=== PATIENT | female | born 1980 | race Caucasian/White ===

== ENCOUNTER → 2018-01-13 11:19 | Outpatient (CLI) | payer OTHER, MEDICAID, SELFPAY ==
[2018-01-13 12:16] LABS: Add Manual Diff / Slide Review NO; Basophils Percent Auto 0.4 % (0-2); Eosinophils Percent Auto 0.6 % (2-4); Hematocrit 39.8 % (36-46); Hemoglobin 13.1 g/dL (12.0-16.0); Lymphocytes Percent Auto 23.2 % (25-40); Mean Corpuscular HGB Conc 32.9 % (30-36); Mean Corpuscular Hemoglobin 24.6 PG (26-34); Mean Corpuscular Volume 74.9 fL (80-100); Monocytes Percent Auto 4.4 % (3-14); Neutrophils Absolute Auto 4800 /uL (3000-5900); Neutrophils Percent Auto 71.4 % (50-75); Platelet Count 259 X10^3/uL (150-400); Red Blood Cell Count 5.32 X10^6/uL (4.0-5.2); Red Cell Distribution Width 15.2 % (11.6-14.8); White Blood Cell Count 6.7 X10^3/uL (4.5-11.0)
[2018-01-13 13:49] LABS: HEMOLYSIS < 15 (0-50); Iron 48 ug/dL (37-170)
[2018-01-13 14:00] LABS: Percent Iron Saturation 12 % (15-50); Total Iron Binding Capacity 415 ug/mL (265-497); Transferrin 343 mg/dL (206-381)
[2018-01-13 14:05] LABS: Free T4, Direct Thyroxine 1.16 ng/dL (0.78-2.19)
[2018-01-13 14:15] LABS: Ferritin 14.5 ng/mL (6.27-137)
[2018-01-13 14:18] LABS: Thyroid Stimulating Hormone 2.59 uIU/mL (0.47-4.68)
== END ==
PROVIDERS: PCP Family Medicine; Visit Provider Family Medicine
DX: D50.9 Iron deficiency anemia, unspecified (principal); E03.9 Hypothyroidism, unspecified
CPT/HCPCS: 36415; 82728; 83540; 83550; 84439; 84443; 84481; 85025

== ENCOUNTER → 2018-08-13 14:43 | Outpatient (CLI) | payer OTHER, MEDICAID, SELFPAY ==
[2018-08-13 15:19] LABS: Add Manual Diff / Slide Review NO; Basophils Percent Auto 0.4 % (0-2); Eosinophils Percent Auto 0.7 % (2-4); Hematocrit 40.6 % (36-46); Lymphocytes Percent Auto 26.3 % (25-40); Mean Corpuscular HGB Conc 31.9 % (30-36); Mean Corpuscular Hemoglobin 23.7 PG (26-34); Mean Corpuscular Volume 74.2 fL (80-100); Monocytes Percent Auto 4.7 % (3-14); Neutrophils Absolute Auto 5700 /uL (1500-7000); Neutrophils Percent Auto 67.9 % (50-75); Platelet Count 318 X10^3/uL (150-400); Red Blood Cell Count 5.48 X10^6/uL (4.0-5.2); White Blood Cell Count 8.3 X10^3/uL (4.5-11.0)
== END ==
PROVIDERS: PCP Family Medicine; Visit Provider Family Medicine
DX: D50.9 Iron deficiency anemia, unspecified (principal)
CPT/HCPCS: 36415; 85025

== ENCOUNTER → 2018-11-03 16:07 | Outpatient (CLI) | payer OTHER, MEDICAID, SELFPAY ==
[2018-11-03 18:10] LABS: HIV 1 and 2 Antibody NEGATIVE (NEGATIVE)
[2018-11-06 09:12] LABS: Hepatitis A Antibody IgM NONREACTIVE (NONREACTIVE); Hepatitis Acute Panel Interp 0.03; Hepatitis B Core Antibody IgM NONREACTIVE (NONREACTIVE); Hepatitis B Surface Antigen NONREACTIVE (NONREACTIVE); Hepatitis C Antibody NONREACTIVE
== END ==
PROVIDERS: PCP Family Medicine; Visit Provider Family Medicine
DX: T74.21XA Adult sexual abuse, confirmed, initial encounter (principal)
CPT/HCPCS: 36415; 80074; 86703

== ENCOUNTER → 2019-02-05 14:55 | Outpatient (CLI) | payer OTHER, MEDICAID, SELFPAY ==
[2019-02-05 15:22] LABS: Add Manual Diff / Slide Review NO; Basophils Absolute Auto 100 /uL (0-100); Eosinophils Absolute Auto 100 /uL (0-450); Eosinophils Percent Auto 1.1 % (2-4); Hematocrit 40.3 % (36-46); Hemoglobin 13.2 g/dL (12.0-16.0); Lymphocytes Absolute Auto 1800 /uL (1100-4500); Lymphocytes Percent Auto 23.5 % (25-40); Mean Corpuscular HGB Conc 32.8 % (30-36); Mean Corpuscular Hemoglobin 24.1 PG (26-34); Mean Corpuscular Volume 73.3 fL (80-100); Monocytes Absolute Auto 400 /uL (0-900); Monocytes Percent Auto 5.1 % (3-14); Neutrophils Absolute Auto 5300 /uL (1500-7000); Neutrophils Percent Auto 69.3 % (50-75); Platelet Count 295 X10^3/uL (150-400); Red Cell Distribution Width 15.2 % (11.6-14.8); White Blood Cell Count 7.7 X10^3/uL (4.5-11.0)
[2019-02-05 15:35] LABS: Hemoglobin A1C% w Est Avg Glu 5.1 % (4.0-6.0)
[2019-02-05 15:50] LABS: Blood Urea Nitrogen 12 mg/dL (7-17); Calcium 9.6 mg/dL (8.4-10.2); Carbon Dioxide 26 mmol/L (22-32); Chloride 101 mmol/L (98-107); Estimated Glomerular Filt Rate > 60.0 mL/min (>60); Glucose 129 mg/dL (70-100); HEMOLYSIS < 15 (0-50); Potassium 4.2 mmol/L (3.4-5.1); Sodium 138 mmol/L (137-145)
[2019-02-05 15:56] LABS: HEMOLYSIS 33 (0-50); Iron 52 ug/dL (37-170)
[2019-02-05 16:06] LABS: Percent Iron Saturation 12 % (15-50); Total Iron Binding Capacity 420 ug/dL (265-497); Transferrin 332 mg/dL (206-381)
[2019-02-05 16:25] LABS: Ferritin 73.9 ng/mL (6.27-137)
[2019-02-09 16:49] LABS: Hematocrit 42.1 % (35.0-45.0); Hemoglobin 13.3 g/dL (11.7-15.5); MCH 24.3 pg (27.0-33.0); MCV 76.8 fL (80.0-100.0); RBC Total Count 5.48 Million/uL (3.80-5.10); RDW 15.3 % (11.0-15.0)
== END ==
PROVIDERS: PCP Family Medicine; Visit Provider Family Medicine
DX: E16.2 Hypoglycemia, unspecified (principal); D50.9 Iron deficiency anemia, unspecified
CPT/HCPCS: 36415; 80048; 82728; 83021; 83036; 83540; 83550; 85014; 85018; 85025; 85041

== ENCOUNTER → 2019-04-16 15:51 | Outpatient (CLI) | payer OTHER, MEDICAID, SELFPAY ==
[2019-04-16 17:26] LABS: BUN Creatinine Ratio 18.3 (6-22); Blood Urea Nitrogen 11 mg/dL (7-17); Calcium 9.3 mg/dL (8.4-10.2); Carbon Dioxide 29 mmol/L (22-32); Chloride 104 mmol/L (98-107); Estimated Glomerular Filt Rate > 60.0 mL/min (>60); Glucose 90 mg/dL (70-100); HEMOLYSIS < 15 (0-50); Sodium 140 mmol/L (137-145)
[2019-04-16 18:18] LABS: HIV 1 and 2 Antibody NEGATIVE (NEGATIVE)
[2019-05-08 13:07] LABS: Hepatitis A Antibody IgM NONREACTIVE; Hepatitis B Core Antibody IgM NONREACTIVE; Hepatitis B Surface Antigen NONREACTIVE; Hepatitis C Antibody NONREACTIVE
== END ==
PROVIDERS: PCP Family Medicine; Visit Provider Family Medicine
DX: T74.21XA Adult sexual abuse, confirmed, initial encounter (principal); I10 Essential (primary) hypertension
CPT/HCPCS: 36415; 80048; 80074; 86703

== ENCOUNTER → 2019-05-22 13:14 | Outpatient (CLI) | payer OTHER, MEDICAID, SELFPAY ==
[2019-05-22 14:29] LABS: BUN Creatinine Ratio 16.7 (6-22); Blood Urea Nitrogen 10 mg/dL (7-17); Calcium 9.2 mg/dL (8.4-10.2); Carbon Dioxide 31 mmol/L (22-32); Chloride 103 mmol/L (98-107); Estimated Glomerular Filt Rate > 60.0 mL/min (>60); Glucose 89 mg/dL (70-100); HEMOLYSIS < 15 (0-50); Potassium 3.9 mmol/L (3.4-5.1); Sodium 139 mmol/L (137-145)
== END ==
PROVIDERS: PCP Family Medicine; Visit Provider Family Medicine
DX: I10 Essential (primary) hypertension (principal)
CPT/HCPCS: 36415; 80048

== ENCOUNTER → 2020-07-09 15:15 | Outpatient (CLI) | payer OTHER, MEDICAID, SELFPAY ==
--- NOTE | 2020-07-09 15:16 | DI.MG.S_ITS ---
BILATERAL DIGITAL SCREENING MAMMOGRAM 3D/2D WITH CAD: 07/09/2020 CLINICAL: Routine screening. Comparison is made to exam dated: 01/14/2014 mammogram - outside location. The tissue of both breasts is heterogeneously dense. This may lower the sensitivity of mammography. Current study was also evaluated with a Computer Aided Detection (CAD) system. There is a stable benign global asymmetry in the left breast. No significant masses, calcifications, or other findings are seen in either breast. There has been no significant interval change. IMPRESSION: BENIGN There is no mammographic evidence of malignancy. A 1 year screening mammogram is recommended. This exam was interpreted at Station ID: [id number]. NOTE: For mammograms, a report in lay terms will be sent to the patient. Approximately 15% of breast malignancies will not be visualized mammographically. In the management of a palpable breast mass, a negative mammogram must not discourage biopsy of a clinically suspicious lesion. Electronically Signed By: Zander Clark acr/hakan:07/10/2020 18:08:58 letter sent: Normal Exam ACR BI-RADS Category 2: Benign Finding(s) 3342F
== END ==
PROVIDERS: PCP Family Medicine; Referring Provider Family Medicine; Visit Provider Family Medicine
DX: Z12.31 Encounter for screening mammogram for malignant neoplasm of breast (principal)
CPT/HCPCS: 77063; 77067

== ENCOUNTER → 2021-02-17 10:04 | Outpatient (CLI) | payer OTHER, MEDICAID, SELFPAY ==
[2021-02-17 10:40] LABS: Add Manual Diff / Slide Review NO; Basophils Absolute Auto 0 /uL (0-100); Basophils Percent Auto 0.5 % (0-2); Eosinophils Absolute Auto 100 /uL (0-450); Eosinophils Percent Auto 0.7 % (2-4); Hematocrit 37.6 % (36-46); Hemoglobin 12.4 g/dL (12.0-16.0); Lymphocytes Absolute Auto 2000 /uL (1100-4500); Mean Corpuscular HGB Conc 32.9 % (30-36); Mean Corpuscular Hemoglobin 24.6 PG (26-34); Mean Corpuscular Volume 74.7 fL (80-100); Monocytes Absolute Auto 500 /uL (0-900); Neutrophils Absolute Auto 5000 /uL (1500-7000); Neutrophils Percent Auto 65.8 % (50-75); Platelet Count 252 X10^3/uL (150-400); Red Blood Cell Count 5.03 X10^6/uL (4.0-5.2); Red Cell Distribution Width 15.4 % (11.6-14.8); White Blood Cell Count 7.7 X10^3/uL (4.5-11.0)
[2021-02-17 10:55] LABS: BUN Creatinine Ratio 16.1 (6-22); Blood Urea Nitrogen 10 mg/dL (7-17); Calcium 9.4 mg/dL (8.4-10.2); Carbon Dioxide 28 mmol/L (22-32); Chloride 103 mmol/L (98-107); Estimated Glomerular Filt Rate > 60.0 mL/min (>60); Glucose 107 mg/dL (70-100); HEMOLYSIS < 15 (0-50); Potassium 3.6 mmol/L (3.4-5.1); Sodium 139 mmol/L (137-145)
[2021-02-17 11:24] LABS: TSH w/ Reflex to FT4 4.53 uIU/mL (0.47-4.68)
[2021-02-20 10:23] LABS: HEMOLYSIS < 15 (0-50); Iron 41 ug/dL (37-170)
[2021-02-20 10:34] LABS: Percent Iron Saturation 11 % (15-50); Total Iron Binding Capacity 370 ug/dL (265-497); Transferrin 312 mg/dL (206-381)
[2021-02-20 10:43] LABS: Ferritin 34 ng/mL (6-137)
== END ==
PROVIDERS: PCP Family Medicine; Referring Provider Family Medicine; Visit Provider Family Medicine
DX: E03.9 Hypothyroidism, unspecified (principal); I10 Essential (primary) hypertension; D50.8 Other iron deficiency anemias
CPT/HCPCS: 36415; 80048; 82728; 83540; 83550; 84443; 85025

== ENCOUNTER → 2021-03-31 12:54 | Outpatient (CLI) | payer OTHER, MEDICAID, SELFPAY ==
[2021-03-31 13:47] LABS: COVID19 -Nasal RAPID Negative (Negative)
== END ==
PROVIDERS: PCP Family Medicine; Referring Provider Internal Medicine; Visit Provider Internal Medicine
DX: Z20.822 Contact with and (suspected) exposure to COVID-19 (principal)
CPT/HCPCS: 87635; C9803

== ENCOUNTER → 2021-03-31 12:56 | Outpatient (CLI) | payer OTHER, MEDICAID, SELFPAY ==
--- NOTE | 2021-04-12 09:28 | PM.PFT.1 ---
Pulmonary Function Test Referral & Results Date Patient Seen: 03/31/21 Requesting provider: Shyla Perez Results: The spirometry demonstrates an FVC of 3.33 L which is 91% of predicted. The FEV1 was measured at 2.74 L which is 92% of predicted. The FEV1/FVC ratio was 82 which is 100% of predicted. Following the administration of bronchodilator there was no appreciable change to above normal numbers. Lung volumes show an SVC of 3.34 L which is 98% of predicted. The diffusing capacity was measured at 22.50 which is 92% of predicted. The maximum voluntary ventilation was normal Interpretation: This study demonstrates normal pulmonary function
== END ==
PROVIDERS: PCP Family Medicine; Referring Provider Family Medicine; Visit Provider Family Medicine
DX: R06.02 Shortness of breath (principal); Z20.822 Contact with and (suspected) exposure to COVID-19
CPT/HCPCS: 87635; 94060; 94726; 94729; C9803

== ENCOUNTER → 2021-04-28 10:48 | Outpatient (CLI) | payer OTHER, MEDICAID, SELFPAY ==
[2021-04-28 12:23] LABS: TSH w/ Reflex to FT4 1.21 uIU/mL (0.47-4.68)
== END ==
PROVIDERS: PCP Family Medicine; Referring Provider Family Medicine; Visit Provider Family Medicine
DX: E03.9 Hypothyroidism, unspecified (principal)
CPT/HCPCS: 36415; 84443

== ENCOUNTER 2021-05-17 11:54 | Emergency (ER) | payer OTHER, MEDICAID, SELFPAY ==
[2021-05-17] VITALS (9 sets, daily range): BP systolic 134–153; BP diastolic 65–89; PULSE 53–98; RESP 4–30; TEMP 36.3; O2SAT 97–100; BMI 41.1
--- NOTE | 2021-05-17 12:08 | DI.RAD.S_ITS ---
PROCEDURE: XR CHEST 1V INDICATIONS: chest pain TECHNIQUE: One view of the chest was acquired. COMPARISON: None. FINDINGS: Surgical changes and devices: None. Lungs and pleura: Lungs are clear. No pleural effusions or pneumothorax. Mediastinum: Mediastinal contours appear normal. Heart size is normal. Bones and chest wall: No suspicious bony lesions. Overlying soft tissues appear unremarkable. IMPRESSION: No acute pulmonary process. Dictated by: Staci Ventura M.D. on 05/17/2021 at 12:29 Approved by: Staci Ventura M.D. on 05/17/2021 at 12:29
[2021-05-17 12:20] LABS: Add Manual Diff / Slide Review NO; Basophils Absolute Auto 0 /uL (0-100); Basophils Percent Auto 0.5 % (0-2); Eosinophils Absolute Auto 100 /uL (0-450); Hematocrit 36.6 % (36-46); Hemoglobin 11.6 g/dL (12.0-16.0); Lymphocytes Absolute Auto 1300 /uL (1100-4500); Lymphocytes Percent Auto 17.6 % (25-40); Mean Corpuscular HGB Conc 31.7 % (30-36); Mean Corpuscular Hemoglobin 24.3 PG (26-34); Mean Corpuscular Volume 76.4 fL (80-100); Monocytes Absolute Auto 300 /uL (0-900); Monocytes Percent Auto 3.9 % (3-14); Neutrophils Absolute Auto 5900 /uL (1500-7000); Platelet Count 277 X10^3/uL (150-400); Red Cell Distribution Width 15.3 % (11.6-14.8); White Blood Cell Count 7.7 X10^3/uL (4.5-11.0)
[2021-05-17 12:37] LABS: Alanine Aminotransferase 21 IU/L (<35); Albumin 4.3 g/dL (3.5-5.0); Albumin Globulin Ratio 1.2 (1.0-2.8); Alkaline Phosphatase 97 U/L (38-126); Aspartate Aminotransferase 26 IU/L (14-36); BUN Creatinine Ratio 14.1 (6-22); Bilirubin Total 0.3 mg/dL (0.2-1.3); Blood Urea Nitrogen 9 mg/dL (7-17); Calcium 9.4 mg/dL (8.4-10.2); Carbon Dioxide 31 mmol/L (22-32); Chloride 105 mmol/L (98-107); Creatine Kinase 97 U/L (30-135); Estimated Glomerular Filt Rate > 60.0 mL/min (>60); Globulin 3.5 g/dL (1.7-4.1); Glucose 112 mg/dL (70-100); HEMOLYSIS < 15 (0-50); Lipase 64 U/L (23-300); Potassium 4.2 mmol/L (3.4-5.1); Sodium 140 mmol/L (137-145); Total Protein 7.8 g/dL (6.3-8.2)
[2021-05-17] MEDS: ONDANSETRON 4 MG ODT SL (12:38)
[2021-05-17 12:49] LABS: NT-proBNP (BNP-Adult 18+) 78 pg/mL (<125); Troponin I < 0.012 ng/mL (0.01-0.034)
[2021-05-17 12:54] LABS: COVID19 -Nasal RAPID Negative (Negative)
--- NOTE | 2021-05-17 13:06 | ED.CHESTPAIN ---
HPI - Chest Pain General Chief Complaint: Chest Pain Stated Complaint: Abd Pain, chest pressure from [facility] Time Seen by Provider: 05/17/21 12:53 Source: patient Mode of arrival: Wheelchair History of Present Illness HPI narrative: Patient is a 41-year-old female. Was sent to the emergency department from the walk-in clinic for was initially described as chest pressure and abdominal discomfort. Upon my evaluation the patient states she is having upper back pain that is radiating around to the front and also tore upper abdomen. It started earlier today. She informed nursing staff that she has had similar symptoms in the past that have resolved with having a bowel movement but when I asked her about prior symptoms like this she stated that she has never had symptoms before. Her back discomfort does not get worse with palpation or movement. No rashes over the area. No problems with breathing. She states that the symptoms are there consistently but then seemed to get worse. She describes it as a ?cramping sensation. She states this causes her to have nausea and vomiting. No urinary symptoms. No change in bowel habits. No fevers. Related Data Home Medications Medication Instructions Recorded Confirmed Resmed Airsense 10 CPAP #1 ea 02/03/19 04/28/21 buspirone 10 mg tablet 10 mg PO BID 06/03/19 04/28/21 Previous Rx's Medication Instructions Recorded sertraline 100 mg tablet 200 mg PO DAILY #60 tab 01/13/18 Test Strips - Freestyle #100 each 05/09/20 ferrous sulfate 325 mg (65 mg 325 mg PO QDAY #90 tab 05/09/20 iron) tablet (Iron (ferrous sulfate)) levothyroxine 88 mcg tablet 88 mcg PO DAILY #30 tab 02/20/21 hydrochlorothiazide 25 mg tablet 25 mg PO DAILY #30 tab 04/13/21 lancets 33 gauge (BD Ultra Fine #250 ea 04/13/21 Lancets) cyclobenzaprine 10 mg tablet 10 mg PO TID PRN #14 tab 05/17/21 ondansetron 4 mg disintegrating 4 mg PO Q6H PRN #14 tab 05/17/21 tablet Allergies Allergy/AdvReac Type Severity Reaction Status Date / Time No Known Allergies Allergy Uncoded 05/17/21 12:15 Review of Systems Constitutional Constitutional: Reports system reviewed and no additional complaints, except as documented and Denies fever(s) Cardiovascular Cardiovascular: Reports as per HPI and Reports system reviewed and no additional complaints, except as documented Respiratory Respiratory: Reports as per HPI and Reports system reviewed and no additional complaints, except as documented Gastrointestinal Gastrointestinal: Reports as per HPI and Reports system reviewed and no additional complaints, except as documented Genitourinary Genitourinary: Reports system reviewed and no additional complaints, except as documented Musculoskeletal Musculoskeletal: Reports back pain Integumentary/Breasts Skin/Breast: Reports system reviewed and no additional complaints, except as documented and Reports as per HPI Neurologic Neurologic: Reports system reviewed and no additional complaints, except as documented Hematologic/Lymphatic On Anticoagulants: No Patient History Medical History Abnormal Pap smear of cervix (~2013) Anemia Ankle pain (~2016) Anxiety Burton's palsy Chickenpox Chronic back pain Depression Dyslexia Essential hypertension Fracture (~2016) 3 Hearing deficit History of frequent headaches HSV (herpes simplex virus) infection (~1989) Hyperlipidemia Hypothyroidism (~2013) IBS (irritable bowel syndrome) (~2012) Pre-diabetes PTSD (post-traumatic stress disorder) Sleep apnea (~2015) Ulnar neuropathy Surgical History Anesthesia History of ankle surgery (~2016) History of third molar tooth extraction (~2000) Status post tubal ligation (~2003) Family History Grandfather Cancer Grandmother Heart disease High cholesterol Stroke Mother Age: 68 Atrial fibrillation Hypertension Obesity Diabetes mellitus Brother No problems noted. Father No problems noted. Social History Smoking Status: Never smoker Smoking Status: Never smoker Substance Use Type: does not use Exam Initial Vital Signs Initial Vital Signs: Vital Signs Pulse Rate 73 05/17/21 12:00 Pulse Oximetry 97 05/17/21 12:00 HENMT Head: normal to inspection and normocephalic Chest Chest: No crepitus and No tenderness Resp Effort & Inspection: normal respiratory effort Auscultation: clear to auscultation bilaterally Cardio Rate: regular rate Rhythm: regular rhythm GI Palpation: soft, No firm and No tender Back/Spine/Pelvis Cervical Spine: No cervical spinal tenderness Thoracic/Lumbar Spine: No paraspinal tenderness, No thoraco-lumbar spasm and No thoracic spinal tenderness Skin General: no rashes or lesions noted Neuro General: patient alert, patient awake and moves all extremities Extrem General: normal to inspection and capillary refill normal Psych Appearance: grossly normal and well kempt Course Orders Ordered: ED Orders 05/17/21 12:08 XR chest 1V Stat EKG-12 Lead Stat 05/17/21 12:12 Complete Blood Count AUTO DIFF Stat Comprehensive Metabolic Panel Stat Lipase Stat NT-proBNP (BNP-Adult 18+) Stat Troponin & CK Cardiac Panel Stat 05/17/21 12:19 COVID19 -Nasal swab/Pre-Proc Stat Discontinued Medications Ondansetron HCl (Ondansetron 4 Mg Odt) 4 mg SL NOW ONE Stop: 05/17/21 12:34 Last Admin: 05/17/21 12:38 Dose: 4 mg Documented by: SATURNINO Vital Signs Vital signs: Vital Signs - 8 hr 05/17/21 12:00 05/17/21 12:03 05/17/21 12:15 Temperature 97.3 F L Pulse Rate 73 61 62 Respiratory Rate 4 L 22 Blood Pressure 141/65 H 141/65 H Pulse Oximetry 97 99 99 05/17/21 12:30 05/17/21 12:32 05/17/21 12:49 Temperature Pulse Rate 57 L 98 H 61 Respiratory Rate 19 30 H 21 Blood Pressure 134/66 146/87 H Pulse Oximetry 100 99 99 05/17/21 13:00 05/17/21 13:30 05/17/21 13:31 Temperature Pulse Rate 53 L 58 L 55 L Respiratory Rate 22 12 14 Blood Pressure 148/85 H 153/89 H Pulse Oximetry 99 100 99 MDM - Chest Pain Lab Data Attestation: I reviewed the patient's lab results. Result diagrams: 05/17/21 12:12 05/17/21 12:12 Labs: Lab Results 05/17/21 05/17/21 05/17/21 Range/Units 12:12 12:12 12:19 WBC 7.7 (4.5-11.0) X10^3/uL RBC 4.80 (4.0-5.2) X10^6/uL Hgb 11.6 L (12.0-16.0) g/dL Hct 36.6 (36-46) % MCV 76.4 L (80-100) fL MCH 24.3 L (26-34) PG MCHC 31.7 (30-36) % RDW 15.3 H (11.6-14.8) % Plt Count 277 (150-400) X10^3/uL Neut % (Auto) 77.0 H (50-75) % Lymph % (Auto) 17.6 L (25-40) % Prentiss % (Auto) 3.9 (3-14) % Eos % (Auto) 1.0 L (2-4) % Baso % (Auto) 0.5 (0-2) % Neut # (Auto) 5900 (7811-9038) /uL Lymph # (Auto) 1300 (6412-7386) /uL Prentiss # (Auto) 300 (0-900) /uL Eos # (Auto) 100 (0-450) /uL Baso # (Auto) 0 (0-100) /uL Sodium 140 (137-145) mmol/L Potassium 4.2 (3.4-5.1) mmol/L Chloride 105 (98-107) mmol/L Carbon Dioxide 31 (22-32) mmol/L BUN 9 (7-17) mg/dL Creatinine 0.64 (0.52-1.04) mg/dL Estimated GFR > 60.0 (>60) mL/min BUN/Creatinine Ratio 14.1 (6-22) Glucose 112 H (70-100) mg/dL Calcium 9.4 (8.4-10.2) mg/dL Total Bilirubin 0.3 (0.2-1.3) mg/dL AST 26 (14-36) IU/L ALT 21 (<35) IU/L Alkaline Phosphatase 97 (38-126) U/L Total Creatine Kinase 97 (30-135) U/L CK-MB (CK-2) TNP CK-MB (CK-2) Rel Index TNP Troponin I < 0.012 (0.01-0.034) ng/mL NT-Pro-B Natriuret Pep 78 (<125) pg/mL Total Protein 7.8 (6.3-8.2) g/dL Albumin 4.3 (3.5-5.0) g/dL Globulin 3.5 (1.7-4.1) g/dL Albumin/Globulin Ratio 1.2 (1.0-2.8) Lipase 64 (23-300) U/L SARS-CoV-2 (PCR) Negative (Negative) Point of Care Testing Test Results Negative Urine Dip Bedside Urine Glucose Negative Bedside Urine Bilirubin - Negative Bedside Urine Ketone - Negative Urine Specific [place] 1.015 Bedside Urine Occult Blood - Negative Bedside Urine pH 8.0 Bedside Urine Protein - Negative Bedside Urine Urobilinogen - Negative Bedside Urine Nitrite - Negative Bedside Urine Leukocytes - Negative Esterase Imaging Data Chest x-ray: Radiologist's Impression: [address] [id number] ReportSigned Patient: Juan Antonio Ogden MMR#: [id number]: 1980Acct:[id number]/Sex: 41 / FDate of Service: 05/17/21Loc: EDAccession Number: [id number] Procedure: XR chest 1V Ordering Provider: Sandoval Gonzalez D.O. PROCEDURE: XR CHEST 1V INDICATIONS: chest pain TECHNIQUE: One view of the chest was acquired. COMPARISON: None. FINDINGS: Surgical changes and devices: None. Lungs and pleura: Lungs are clear. No pleural effusions or pneumothorax. Mediastinum: Mediastinal contours appear normal. Heart size is normal. Bones and chest wall: No suspicious bony lesions. Overlying soft tissues appear unremarkable. IMPRESSION: No acute pulmonary process. Dictated by: Staci Ventura M.D. on 05/17/2021 at 12:29 Approved by: Staci Ventura M.D. on 05/17/2021 at 12:29 ECG Data Attestation: I personally reviewed and interpreted this ECG as follows: Interpretation: Sinus rhythm Ventricular rate is 61 Normal axis Normal QRS Normal QTC No ST T wave changes MDM Narrative Medical decision making narrative: Somewhat difficult to obtain exactly why the patient is here. We have had different stories to include chest discomfort and abdominal discomfort but when I talk with the patient it seems that she is having back discomfort. She describes it as a cramping sensation that she states radiates around to the front. She states that is on the right side. Also causing her to have some discussed comfort in her abdomen which causes her to vomit. Her workup here in the emergency department is unremarkable. I have low suspicion for pneumonia. Low suspicion for ACS. Low suspicion for dissection based on her presentation. No further workup needed the emergency department. I have low suspicion for emergent condition. She was given return precautions and follow-up instructions. She expressed understanding and agreement. Discharge Plan Departure Patient Disposition: Home Clinical Impression: Acute upper back pain, Atypical chest pain Instructions: Thoracic Back Pain Activity Restrictions/Additional Instructions: I do recommend that you continue to take all the medications as directed. Start taking the new medications as directed and as needed as well. Contact your primary doctor for follow-up. Return to the emergency department for any new or worsening symptoms. Prescriptions: New cyclobenzaprine 10 mg tablet 10 mg PO TID PRN (Reason: muscle spasm) Qty: 14 RF: 0 ondansetron 4 mg tablet,disintegrating 4 mg PO Q6H PRN (Reason: nausea and vomiting) Qty: 14 RF: 0 No Action (DME) Test Strips - Freestyle See Rx Instructions .Route .MEDSUPPLY Qty: 100 RF: 2 ferrous sulfate [Iron (ferrous sulfate)] 325 mg (65 mg iron) tablet 325 mg PO QDAY Qty: 90 RF: 2 levothyroxine 88 mcg tablet 88 mcg PO DAILY Qty: 30 RF: 2 (DME) lancets [BD Ultra Fine Lancets] 33 gauge misc See Dose Instructions .ROUTE .MEDSUPPLY Qty: 250 RF: 6 hydrochlorothiazide 25 mg tablet 25 mg PO DAILY Qty: 30 RF: 1 sertraline 100 mg tablet 200 mg PO DAILY Qty: 60 RF: 5 buspirone 10 mg tablet 10 mg PO BID RF: 0 (DME) Resmed Airsense 10 CPAP Qty: 1 RF: 0 Referrals: Shyla Perez DO [Primary Care Provider] -
== END 2021-05-17 13:43 | disposition home or self-care (01) ==
PROVIDERS: Emergency Provider Emergency Medicine; PCP Family Medicine
DX: M54.6 Pain in thoracic spine (principal); R07.89 Other chest pain; R10.9 Unspecified abdominal pain; Z20.822 Contact with and (suspected) exposure to COVID-19
CPT/HCPCS: 71045; 80053; 81003; 81025; 82550; 83690; 83880; 84484; 85025; 87635; 93005; 93010; 99284; C9803

== ENCOUNTER → 2021-05-29 13:35 | Outpatient (CLI) | payer OTHER, MEDICAID, SELFPAY ==
[2021-05-29 14:33] LABS: Influenza A - CEPHEID Flu A NEGATIVE (NEGATIVE); Influenza B - CEPHEID Flu B NEGATIVE (NEGATIVE)
[2021-05-29 15:07] LABS: Add Manual Diff / Slide Review NO; Basophils Absolute Auto 100 /uL (0-100); Basophils Percent Auto 0.9 % (0-2); Eosinophils Absolute Auto 100 /uL (0-450); Eosinophils Percent Auto 0.9 % (2-4); Hematocrit 32.7 % (36-46); Hemoglobin 10.5 g/dL (12.0-16.0); Lymphocytes Absolute Auto 1300 /uL (1100-4500); Lymphocytes Percent Auto 15.1 % (25-40); Mean Corpuscular HGB Conc 32.2 % (30-36); Mean Corpuscular Hemoglobin 24.1 PG (26-34); Mean Corpuscular Volume 74.9 fL (80-100); Monocytes Absolute Auto 500 /uL (0-900); Monocytes Percent Auto 6.4 % (3-14); Neutrophils Absolute Auto 6400 /uL (1500-7000); Neutrophils Percent Auto 76.7 % (50-75); Platelet Count 415 X10^3/uL (150-400); Red Blood Cell Count 4.36 X10^6/uL (4.0-5.2); Red Cell Distribution Width 15.1 % (11.6-14.8); White Blood Cell Count 8.4 X10^3/uL (4.5-11.0)
[2021-05-29 15:11] LABS: COVID19 -Nasal RAPID Negative (Negative)
[2021-05-29 16:10] LABS: Alanine Aminotransferase 16 IU/L (<35); Albumin 3.8 g/dL (3.5-5.0); Albumin Globulin Ratio 1.2 (1.0-2.8); Alkaline Phosphatase 111 U/L (38-126); Aspartate Aminotransferase 21 IU/L (14-36); BUN Creatinine Ratio 10.5 (6-22); Bilirubin Total 0.5 mg/dL (0.2-1.3); Blood Urea Nitrogen 6 mg/dL (7-17); Carbon Dioxide 30 mmol/L (22-32); Chloride 98 mmol/L (98-107); Estimated Glomerular Filt Rate > 60.0 mL/min (>60); Globulin 3.3 g/dL (1.7-4.1); Glucose 99 mg/dL (70-100); HEMOLYSIS 19 (0-50); Lipase 52 U/L (23-300); Sodium 137 mmol/L (137-145); Total Protein 7.1 g/dL (6.3-8.2)
[2021-05-30 06:38] LABS: Interpretation Positive (Negative)
== END ==
PROVIDERS: PCP Family Medicine; Referring Provider Registered Nurse; Visit Provider Registered Nurse
DX: R09.89 Other specified symptoms and signs involving the circulatory and respiratory systems (principal); R19.7 Diarrhea, unspecified; R53.81 Other malaise; Z20.822 Contact with and (suspected) exposure to COVID-19; R10.9 Unspecified abdominal pain; R53.83 Other fatigue
CPT/HCPCS: 36415; 80053; 83013; 83690; 85025; 87502; 87635

== ENCOUNTER → 2021-07-10 12:42 | Outpatient (CLI) | payer OTHER, MEDICAID, SELFPAY ==
[2021-07-11 10:22] LABS: Interpretation Negative (Negative)
== END ==
PROVIDERS: PCP Family Medicine; Referring Provider Registered Nurse; Visit Provider Registered Nurse
DX: A04.8 Other specified bacterial intestinal infections (principal); K80.50 Calculus of bile duct without cholangitis or cholecystitis without obstruction
CPT/HCPCS: 83013; 99214

== ENCOUNTER → 2021-07-24 15:02 | Outpatient (CLI) | payer OTHER, MEDICAID, SELFPAY ==
[2021-07-24 15:31] LABS: Hematocrit 33.7 % (36-46); Hemoglobin 10.9 g/dL (12.0-16.0); Mean Corpuscular HGB Conc 32.3 % (30-36); Mean Corpuscular Hemoglobin 23.7 PG (26-34); Mean Corpuscular Volume 73.3 fL (80-100); Platelet Count 378 X10^3/uL (150-400); White Blood Cell Count 5.4 X10^3/uL (4.5-11.0)
[2021-07-24 15:33] LABS: Reticulocyte Count, Percent 1.2 % (1.06-2.63)
[2021-07-24 15:45] LABS: HEMOLYSIS 20 (0-50); Iron 37 ug/dL (37-170)
[2021-07-24 15:46] LABS: Cholesterol 173 mg/dL (140-199); HDL Cholesterol 29 mg/dL (40-60); LDL Cholesterol Calculated 124 mg/dL (<100); Triglycerides 102 mg/dL (35-150)
[2021-07-24 15:57] LABS: Percent Iron Saturation 11 % (15-50); Total Iron Binding Capacity 338 ug/dL (265-497); Transferrin 264 mg/dL (206-381)
[2021-07-24 15:58] LABS: COVID19 -Nasal RAPID Negative (Negative)
[2021-07-24 16:21] LABS: Band Neutrophils Percent 2.2 % (3-7); Basophils Percent Manual 1.1 % (0-1); Eosinophils Percent Manual 1.1 % (2-4); Lymphocytes Percent Manual 29.3 % (25-45); Microcytosis 1+; Monocytes Percent Manual 6.5 % (2-11); Neutrophils Absolute Manual 3348 /uL (3000-5900); Segmented Neutrophils Percent 59.8 % (38-70); Total Cells Counted 92
[2021-07-24 16:22] LABS: Ferritin 62 ng/mL (6-137)
== END ==
PROVIDERS: Surgery; PCP Family Medicine; Referring Provider Family Medicine; Visit Provider Family Medicine
DX: Z01.812 Encounter for preprocedural laboratory examination (principal); Z20.822 Contact with and (suspected) exposure to COVID-19; D64.9 Anemia, unspecified; E78.5 Hyperlipidemia, unspecified
CPT/HCPCS: 36415; 80061; 82728; 83540; 83550; 85025; 85045; 87635; C9803

== ENCOUNTER 2021-07-25 14:12 | Inpatient (IN) | payer MEDICAID, OTHER, SELFPAY ==
[2021-07-24 13:43] VITALS: BMI 41.1
[2021-07-25] VITALS (15 sets, daily range): BP systolic 116–134; BP diastolic 59–93; PULSE 66–94; RESP 11–23; TEMP 36.2–36.9; O2SAT 93–100; BMI 40.3
--- NOTE | 2021-07-25 | PATH_ITS ---
[facility] Accession Number: [id number] . 01 Material submitted: . gallbladder - GALLBLADDER . 02 Diagnosis: Gallbladder, Cholecystectomy: Chronic and active cholecystitis with cholelithiasis. Reactive stromal changes in gallbladder wall, suggestive of resolving inflammation/abcess. Serosal adhesions. Negative for dysplasia and malignancy. MRV 08/02/2021 0953 Local . 02 Comment: Additional sections were submitted which all demonstrate marked reactive stromal changes, including large groups of histiocytes suggestive of resolving inflammation/abscess. Although endometriosis was initially considered, there is no definite evidence of endometriosis. Dr. Crawford discussed preliminary findings with Dr. Mccloud on 07/31/2021. . As part of routine quality control engineer, Dr. Harvey also reviewed this case and agrees with the interpretation. . 02 Electronically signed: . Coyn Crawford MD, Pathologist NPI- [id number] . 01 Gross description: . The specimen is received in formalin, labeled gallbladder and consists of a fragmented gallbladder measuring 8.0 x 6.0 x 5.0 cm in aggregate with a 0.2 cm in diameter cystic duct. The serosa is zepeda-pink, focally hemorrhagic and ragged with fibrinous adhesions. Sectioning reveals clotted blood with a 3.0 x 2.2 x 2.0 cm zepeda-green bosselated cholelith. The mucosa is zepeda-pink and smooth to velvety, and the wall thickness measures 1.0 cm. Utility Worker Driver sections are submitted in cassettes A1-A2. A3-A6: Additional employment representative sections of gallbladder. (EA:[id number]) /MRV 08/01/2021 1407 Local . 02 Microscopic: . Immunohistochemical stains were performed to characterize cells of interest. All control stains showed appropriate reactivity. . RESULTS: CD10: Nonspecific staining pattern. PAX-8: Negative. Highlights lymphocytes. CD68: Positive. . Interpretation: The absence of [place]-8 and nonspecific CD10 staining does not support endometriosis. CD68 positive, histiocytes are abundant, suggestive of resolving inflammatory process. . * This test was developed and its performance characteristics determined by [employer]. It has not been cleared or approved by the U.S. Food and Drug Administration. The FDA has determined that such clearance or approval is not necessary. This test is used for clinical purposes. It should not be regarded as investigational or for research. . 02 Pathologist provided ICD-10: K80.50 . 02 CPT . 771861, K51490, B92345 Performed at: [facility] Cytology [address] [id number] MD Melvin Mercado MD Phone: [phone] Performed at: 02 [facility] [address] [place] [id number] MD Cony Crawford MD Phone: [phone]
--- NOTE | 2021-07-25 14:58 | PM.PREOP ---
Pre-operative Note Interval Note History & Physical reviewed/Exam performed by Physician: Yes Changes to H&P: No
[2021-07-25] MEDS: LACTATED RINGERS 1,000 ML 100 ML IV ×3 (15:12→20:48)
[2021-07-25] MEDS: CEFAZOLIN 2 GM/20 ML SYRINGE IV (15:20)
[2021-07-25] MEDS: BUPIVACAINE 0.5% (PF) VIAL 30 ML INJ (15:39)
--- NOTE | 2021-07-25 15:44 | SUR.OPER ---
Supine on padded OR bed, head on pillow, safety belt at thigh, left arm padded and tucked at side. Right arm secured on padded arm board <90 degrees abduction. Legs uncrossed. Padded footboard in place. Tape over blanket to secure lower legs.
[2021-07-25] MEDS: IOPAMIDOL 15 ML VIAL INJ (18:02)
--- NOTE | 2021-07-25 18:09 | DI.RAD.S_ITS ---
PROCEDURE: XR CHOLANGIOGRAM OPERATIVE INDICATIONS: NON LAPROSCOPIC GALLBLADDER REMOVAL COMPARISON: None. FINDINGS: Biliary ducts: The surgeon injected contrast into the biliary ducts after cannulation of the cystic duct stump. Visualized intra- and extrahepatic bile ducts are normal in caliber, without strictures. No intraluminal filling defects to suggest retained ductal stones or sludge. No evidence for iatrogenic ductal injury. Duodenum: The distal portion of the common bile duct is not visualized due to overlying metallic retractors. IMPRESSION: No filling defect is seen within the visualized bile ducts. Dictated by: Nicho Hinds M.D. on 07/25/2021 at 21:42 Approved by: Nicho Hinds M.D. on 07/25/2021 at 21:43
[2021-07-25] MEDS: BUPIVACAINE LIPOSOME 266 MG/20 ML VIAL INJ (18:12)
[2021-07-25] MEDS: HYDROMORPHONE 2 MG INJ IV ×2 (19:06→19:08)
[2021-07-25] MEDS: fentaNYL 100 MCG/2 ML INJ IV ×2 (19:06→19:25)
[2021-07-25] MEDS: ONDANSETRON 4 MG/2 ML INJ IV (19:08)
--- NOTE | 2021-07-25 19:17 | SUR.PHASEI ---
Patient received in PACU from OR s/p open cholycystectomy; placed on monitor; vss; patent awake but drowsy; large abdominal dressing noted with VIRAJ drain; dressing clean, dry and intact. Lee catheter draining without difficulty.
--- NOTE | 2021-07-25 19:21 | PM.OP.1 ---
Operative Date/Time/Diagnoses Date of procedure: 07/25/21 Time of procedure: 19:22 Pre-op diagnosis: biliary colic Post-op diagnosis: other (biliary colic, possible gallbladder cancer) Procedure & Clinicians Procedure: laparoscopic converted to open cholecystectomy Same procedure as scheduled: No Indications: 41F with biliary colic US demonstrates gallstones. Surgeon: Jony Mccloud Cracking And Fanning Machine Operator: Will Arevalo Anesthesia Type: General Operative Notes Findings: Transverse colon and duodenum densely adherent to the gallbladder and liver. The wall of the gallbladder was extremely thick with a plaque/tumor between the gallbladder and the liver Specimen(s): other (gallbladder) Estimated Blood Loss (mL): 100 Procedure in detail: Patient was brought to the operating room placed supine on the table. Bilateral lower extremity compression devices were applied. General anesthesia was induced she was intubated with endotracheal tube. She received 2 g of Ancef prior to skin incision. She was prepped and draped sterile fashion. An infraumbilical incision was made the umbilical stalk was grasped elevated fascia was sharply incised the abdomen was entered atraumatically. A 12 mm balloon trocar was then placed into the abdomen. Pneumoperitoneum was established. Two 5 mm working ports were placed in the right upper quadrant and an 11 mm port high in the epigastric region. There were dense adhesions between the omentum and the liver edge. The omentum was carefully dissected off of the liver but despite this I was still unable to visualize any of the gallbladder. It appeared that the transverse colon was adherent to the anterior surface of the liver and the stomach was shifted towards the midline. Unable to visualize any of the gallbladder the procedure was converted to an open operation. A sub costal incision was made the fascia was divided the abdomen was entered atraumatically. The transverse colon was mobilized from the hepatic flexure medially and taken off of the liver edge. The gallbladder was extremely thickened, contracted and contained multiple stones. The plane between the gallbladder and the liver was distorted it was unclear whether this was a rind of abscess or whether this represented a malignancy. There was a plaque like substance on the external surface of the gallbladder. The gallbladder was dissected off of the liver bed in a top-down fashion. The duodenum was adherent to the gallbladder and the plane between the gallbladder and the duodenum was carefully developed. The cystic artery was divided between between Weck hemo lock clips 5 mm. The cystic duct was clearly identified and a partial ductotomy was made in the cystic duct a catheter was then placed into it and a cholangiogram was obtained that demonstrated normal bile duct anatomy. The cystic duct was then divided and was clipped twice on the stay side. The gallbladder was removed from the field intact. Hemostasis was achieved, 2 pieces of Surgicel were placed on the gallbladder fossa. The abdomen was then irrigated with 2 L of saline. A 19 Slovenian Kemal was then placed into the gallbladder fossa and brought out through the right side of the abdomen. The incision was then closed in layers the fascia closed with 1. PDS suture x2. Subcutaneous tissues were reapproximated using Vicryl suture skin was closed with macarena. The umbilical port fascia was closed with Vicryl suture and the skin closed with staple. Patient tolerated the procedure well was extubated and transferred to recovery room in stable condition. Complications: none Post-operative Condition: stable Disposition: Acute Care
[2021-07-25] MEDS: BUSPIRONE 5 MG TABLET 10 MG PO (20:57)
[2021-07-25] MEDS: OXYCODONE IR 10 MG TABLET PO (21:38)
--- NOTE | 2021-07-25 23:42 | PC.NURSE ---
Admit/Evening Shift Note- Patient arrived to [facility] via bed from PACU at 2014. Patient alert and oriented and able to make needs known to staff. Admit questions done, medications reviewed, physical assessment done, and skin check completed. Patient oriented to bed and bed controls, room, lights, phone, menu, bathroom, and call li/tv remote. Safety measures in place. patient agrees to call for assistance. Bed alarm activated. Call li and phone within reach. Will [id number] to monitor.
[2021-07-26] VITALS (12 sets, daily range): BP systolic 111–139; BP diastolic 71–77; PULSE 66–84; RESP 16–20; TEMP 36.1–37; O2SAT 92–95
[2021-07-26] MEDS: ACETAMINOPHEN 325 MG TABLET 650 MG PO ×5 (01:35→23:29)
[2021-07-26] MEDS: HYDROMORPHONE 1 MG INJ IV (01:35)
[2021-07-26] MEDS: LACTATED RINGERS 1,000 ML 100 ML IV (06:26)
[2021-07-26 07:31] LABS: Add Manual Diff / Slide Review NO; Basophils Absolute Auto 0 /uL (0-100); Basophils Percent Auto 0.5 % (0-2); Eosinophils Absolute Auto 0 /uL (0-450); Hematocrit 32.3 % (36-46); Hemoglobin 10.4 g/dL (12.0-16.0); Lymphocytes Absolute Auto 1000 /uL (1100-4500); Mean Corpuscular HGB Conc 32.2 % (30-36); Mean Corpuscular Hemoglobin 23.4 PG (26-34); Mean Corpuscular Volume 72.5 fL (80-100); Monocytes Absolute Auto 500 /uL (0-900); Monocytes Percent Auto 5.6 % (3-14); Neutrophils Absolute Auto 7700 /uL (1500-7000); Neutrophils Percent Auto 82.9 % (50-75); Platelet Count 396 X10^3/uL (150-400); Red Blood Cell Count 4.46 X10^6/uL (4.0-5.2); Red Cell Distribution Width 16.4 % (11.6-14.8); White Blood Cell Count 9.3 X10^3/uL (4.5-11.0)
[2021-07-26 07:57] LABS: Alanine Aminotransferase 86 IU/L (<35); Albumin 3.7 g/dL (3.5-5.0); Albumin Globulin Ratio 1.1 (1.0-2.8); Alkaline Phosphatase 114 U/L (38-126); Aspartate Aminotransferase 108 IU/L (14-36); BUN Creatinine Ratio 16.1 (6-22); Bilirubin Total 0.6 mg/dL (0.2-1.3); Blood Urea Nitrogen 10 mg/dL (7-17); Calcium 8.9 mg/dL (8.4-10.2); Carbon Dioxide 29 mmol/L (22-32); Chloride 99 mmol/L (98-107); Estimated Glomerular Filt Rate > 60.0 mL/min (>60); Globulin 3.4 g/dL (1.7-4.1); Glucose 153 mg/dL (70-100); HEMOLYSIS 16 (0-50); Potassium 4.1 mmol/L (3.4-5.1); Sodium 135 mmol/L (137-145); Total Protein 7.1 g/dL (6.3-8.2)
[2021-07-26 08:08] LABS: Magnesium 1.6 mg/dL (1.6-2.3); Phosphorous 4.2 mg/dL (2.5-4.5)
[2021-07-26] MEDS: SERTRALINE 50 MG TABLET 200 MG PO (09:20)
[2021-07-26] MEDS: BUSPIRONE 5 MG TABLET 10 MG PO ×2 (09:21→21:21)
[2021-07-26] MEDS: ENOXAPARIN 40 MG/0.4 ML SYRINGE SUBCUT (09:21)
[2021-07-26] MEDS: LEVOTHYROXINE 88 MCG TABLET PO (09:21)
[2021-07-26] MEDS: hydroCHLOROthiazide 25 MG TABLET PO (09:21)
[2021-07-26] MEDS: OXYCODONE IR 10 MG TABLET PO ×2 (09:29→21:21)
--- NOTE | 2021-07-26 09:40 | OT.IP.EVAL ---
Current Diagnoses Calculus of bile duct without cholangitis or cholecystitis without obstruction (07/25/21) Surgery Performed Operation Date: 07/25/21 15:45 Actual Procedures p Laparoscopic Cholecystectomy converted to open laparotomy with gall bladder removal and cholangiogram - Jony Mccloud MD Past Medical History (Last Reviewed 07/25/21 @ 14:50 by Eve Bonds, RN) Abdominal pain Abnormal Pap smear of cervix (~2013) Anemia Anemia, unspecified Ankle pain (~2016) Anxiety Burton's palsy Chickenpox Chronic back pain Depression Diarrhea Dyslexia Essential hypertension Fracture (~2016) 3 Hearing deficit History of ankle surgery (~2016) History of section History of frequent headaches HSV (herpes simplex virus) infection (~1989) Hyperlipidemia Hypothyroidism (~2013) IBS (irritable bowel syndrome) (~2012) Irregular heartbeat DAVID on CPAP Pre-diabetes PTSD (post-traumatic stress disorder) Sleep apnea (~2015) Ulnar neuropathy Surgical History (Last Reviewed 07/25/21 @ 14:50 by Eve Bonds, RN) Anesthesia History of ankle surgery (~2016) History of section History of third molar tooth extraction (~2000) Status post tubal ligation (~2003) Occupational Therapy Inpatient Evaluation/Re-Eval M1 PT/OT-IP Prior Functional Status Start: 07/26/21 12:30 Freq: NEEDED Status: Active Protocol: Document 07/26/21 13:03 [facility] (Rec: 07/26/21 13:18 [facility] [id number]) Medical Review Prior Functional Status Medical History Reviewed Yes Communication able to make needs known Mobility and Gait pt stated that she is independent with all mobilities and ambulation without AD Activities of Daily Living and IADL's Pt states was independent with all needs of ADL,IADl, money management, medications and 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 Pt does not drive and takes the bus to work. Social History Household Members other Living Arrangements House Number of Floors (Floors) Two Floors Number of Stairs To Enter/Railing? Per PT eval- pt will stay at [facility] upon d/c and has elevators to get to the floors: pt is not able to provide home set up infor with regarding to the [facility] pt stated that the house she is living in is a 2 level house but pt stays on first level and has no stept to enter Additional Social History Comment pt stated that she has roommates at home but she plans to stay at [facility] upon d/c. 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 M2 OT-IP Current Condition Start: 07/26/21 13:02 Freq: Status: Active Protocol: Document 07/26/21 13:03 [facility] (Rec: 07/26/21 13:18 [facility] [id number]) Occupational Therapy Current Condition Current Condition Evaluation Date 07/26/21 Treatment Diagnosis S/P open cholecystectomy Diagnosis Onset Date 07/25/21 Post Operative Precautions Abdominal Surgery Precautions Log Roll,Lifting Restrictions, Gait Belt above Incisional Area M3 OT- IP Subjective and Pain Start: 07/26/21 13:02 Freq: Status: Active Protocol: Document 07/26/21 13:03 [facility] (Rec: 07/26/21 13:18 [facility] [id number]) OT- Subjective Occupational Therapy Visit Type Type Initial Evaluation Visit Start Time 08:55 Visit Stop Time 09:40 Total Visit Minutes 45 Occupational Therapy Visit Comments Patient Comments Pt agreed to get up for OT eval. Patient/Caregiver Goals Pt unsure of plans of going home or possibly to [employer]. OT Pain Assessment Pain When Pain Assessed During Mobility Pain Present Pain Present Pain Reported Location Abdomen Intensity 5 Scale Used Numeric (0 - 10) M4 OT- IP ADL's Start: 07/26/21 13:02 Freq: Status: Active Protocol: Document 07/26/21 13:03 [facility] (Rec: 07/26/21 13:18 [facility] [id number]) OT [id number] General Evaluation Self-Feeding Ability Independent OT ADL-Grooming General Evaluation Grooming Ability Independent Comments OT Grooming Comments Able to do while standing at the sink with FWW. OT ADL-Oral Care General Eval Oral Care Ability Independent OT ADL-Dressing General Eval Lower Body Dressing Ability Maximum Assistance Areas Needing Assistance Underpants/Brief,Socks Comments OT Dressing Comments Due to abdominal precautions needing assist and able to initiate showing pt occupational therapist's assistant and sock aid to be able to assist with her needs. OT ADL-Toileting General Evaluation Toileting Ability Total Assistance Comments OT Toileting Comments Lee in place. Pt having her period and able to stand to use wet ones to assist to clean and needing assist for completeness as pt unable to reach certain areas. Showed pt an example of a toilet paper aid which would increase her independence for her needs. OT ADL-Bathing Comments OT Bathing Comments Not at this time. M5 OT- IP IADL's Start: 07/26/21 13:02 Freq: Status: Active Protocol: Document 07/26/21 13:03 [facility] (Rec: 07/26/21 13:18 [facility] [id number]) OT-Instrumental Activities of Daily Living Home Safety Awareness Awareness of Need for Assistance at Home Good Awareness Ability to Problem Solve Emergency Able to Problem Solve Situations Millstone Cleaner Millstone Cleaner Comments At this time pt would need assist for her needs. Driving Driving Comments Pt does not drive and takes the bus. M6 OT- IP Functional Cognition Start: 07/26/21 13:02 Freq: Status: Active Protocol: Document 07/26/21 13:03 [facility] (Rec: 07/26/21 13:18 [facility] [id number]) Cognitive Factors Limiting Selfcare Function Cognitive Ability Level of Alertness Alert Patient Orientation Name,Age,Birthday,Month,Date, Year,Day of Week,Place, Situation Attention Span Ability Capable of Focused Attention, Capable of Sustained Attention Ability to Follow Commands Able to Follow Multi-Step Commands Safety Awareness No Deficits Noted Problem Solving Ability No deficits Noted Cognitive Comments Cognitive Assessment Comments Pt appears at baseline for cognitive needs, continue to assess. OT- Vision and Hearing OT- Hearing Assessment OT- Hearing Assessment WFL M7 OT- IP Mobility and Balance Start: 07/26/21 13:02 Freq: Status: Active Protocol: Document 07/26/21 13:03 [facility] (Rec: 07/26/21 13:18 [facility] [id number]) OT- Bed Mobility Assessment Rolling Type of Rolling Roll to Left Level of Assistance Contact Guard Assistance, Bedrails Supine to Sit Supine to Sit Assist Contact Guard Assistance OT-Transfer Assessment Sit to and From Stand Sit to and from Stand Standby Assistance Transfers Transfer Ability Standby Assistance Technique Transfer Destination Bed,Chair Devices Transfer Assistive Devices Gait Belt,Front Wheeled Walker OT- Balance Assessment Sitting Balance and Reactions Static Sitting Balance Ability Good Dynamic Sitting Balance Ability Good Standing Balance and Reactions Static Standing Balance Ability Good Dynamic Standing Balance Ability Fair M8 OT- IP Objective Assessments Start: 07/26/21 13:02 Freq: Status: Active Protocol: Document 07/26/21 13:03 [facility] (Rec: 07/26/21 13:18 [facility] [id number]) OT Gross Range of Motion Upper Extremity Range of Motion Assessment Within Functional Limits OT-Muscle Tone Assessment Muscle Tone WNL Yes M9 OT- IP Assessment and Plan Start: 07/26/21 13:02 Freq: Status: Active Protocol: Document 07/26/21 13:03 [facility] (Rec: 07/26/21 13:18 [facility] [id number]) OT Summary Assessment and Plan Potential Rehabilitation Potential Good Analytic Complexity at Evaluation Low Summary OT Impairments Pain,Balance,Functional Mobility,Dressing,Toileting, Bathing,Toilet Transfers, Shower Transfers,Activity Tolerance Progress Towards Goals Progressing Toward Goals Assessment Summary Pt low complexity and s/p open cholecystectomy and main barriers are pain, now needing assist for ADl and IADL needs . In addition pt has a low bed at home in which pt will not be able to get up from . Pt will need assist upon discharge. Pt did mention may go to [facility] upon discharge, however pt not sure. Goals Dressing Goal Independent Toileting Goal Independent Bathing Goal Independent Toilet Transfer Goal Independent Shower Transfer Goal Independent Days to Meet Goals 10 Frequency of Treatment Frequency Of Treatment Once a Day Treatment Plan OT Treatment Plan ADL Training,Functional Mobility,Patient/Family Education,Discharge Planning Other Treatment Recommendations and Next GO over LB dressing equipment Treatment Focus and issue to pt Discharge Recommendations OT Discharge Recommendations Home with Assistance Home Equipment Needs LB dressing equipment, toilet paper aid, FWW Transportation Needs at Discharge Private Vehicle
--- NOTE | 2021-07-26 10:17 | P.PN_ITS ---
Subjective Subjective Date Patient Seen: 07/26/21 Time Patient Seen: 10:17 Interval history: Postop day 1-open cholecystectomy Pain is well controlled. Tolerating clear liquids. Ambulatory. Exam Vital Signs (past 8 hours): - 07/26/21 05:00 07/26/21 06:00 07/26/21 07:48 Temperature 97.8 F 98.1 F Pulse Rate 74 66 Respiratory Rate 18 20 Blood Pressure 128/76 139/72 Pulse Oximetry 94 94 93 Oxygen Delivery Method Room Air Oxygen Flow Rate 0 Narrative Exam Narrative: Gen-Adult woman alert and oriented Abdomen-Soft, appropriately tender to palpation. Dressings clean. Drain serosanginous no bile. Objective Labs Result Diagrams: 07/26/21 07:08 07/26/21 07:08 Labs: Laboratory Results - last 24 hr 07/26/21 07/26/21 07/26/21 07:08 07:08 07:08 WBC 9.3 D RBC 4.46 Hgb 10.4 L Hct 32.3 L MCV 72.5 L MCH 23.4 L MCHC 32.2 RDW 16.4 H Plt Count 396 Neut % (Auto) 82.9 H Lymph % (Auto) 11.0 L Avery % (Auto) 5.6 Eos % (Auto) 0.0 L Baso % (Auto) 0.5 Neut # (Auto) 7700 H Lymph # (Auto) 1000 L Avery # (Auto) 500 Eos # (Auto) 0 Baso # (Auto) 0 Sodium 135 L Potassium 4.1 Chloride 99 Carbon Dioxide 29 BUN 10 Creatinine 0.62 Estimated GFR > 60.0 BUN/Creatinine Ratio 16.1 Glucose 153 H Calcium 8.9 Phosphorus 4.2 Magnesium 1.6 Total Bilirubin 0.6 AST 108 H ALT 86 H Alkaline Phosphatase 114 Total Protein 7.1 Albumin 3.7 Globulin 3.4 Albumin/Globulin Ratio 1.1 [facility] Medical History Abdominal pain Abnormal Pap smear of cervix (~2013) Anemia Anemia, unspecified Ankle pain (~2016) Anxiety Burton's palsy Chickenpox Chronic back pain Depression Diarrhea Dyslexia Essential hypertension Fracture (~2016) 3 Hearing deficit History of frequent headaches HSV (herpes simplex virus) infection (~1989) Hyperlipidemia Hypothyroidism (~2013) IBS (irritable bowel syndrome) (~2012) Irregular heartbeat DAVID on CPAP Pre-diabetes PTSD (post-traumatic stress disorder) Sleep apnea (~2015) Ulnar neuropathy Surgical History Anesthesia History of ankle surgery (~2016) History of section History of third molar tooth extraction (~2000) Status post tubal ligation (~2003) Family History Grandfather Cancer Grandmother Heart disease High cholesterol Stroke Mother Age: 68 Atrial fibrillation Hypertension Obesity Diabetes mellitus Brother No problems noted. Father No problems noted. Social History household members: friend(s) Smoking Status: Never smoker alcohol intake: never Assessment & Plan Post-op Postoperative Procedures: Procedures Operation Date: 07/25/21 15:45 Actual Procedure Side Surgeon p Laparoscopic Cholecystectomy converted to open laparotomy with gall bladder removal and cholangiogram Jony Mccloud MD Postoperative status narrative: 41 y.o woman POD 1 sp open cholecystectomy. Technically difficult gallbladder, explained to patient that she either had a chronic infection or possibility of gallbladder cancer. Doing reasonably well today. -Advance diet to regular -DC IVF -Continue drain today -SCDs and pLovneox -Remove myles -PT/OT
--- NOTE | 2021-07-26 11:25 | PT.IIE ---
Current Diagnoses Calculus of bile duct without cholangitis or cholecystitis without obstruction (07/25/21) Surgery Performed Operation Date: 07/25/21 15:45 Actual Procedures p Laparoscopic Cholecystectomy converted to open laparotomy with gall bladder removal and cholangiogram - Jony Mccloud MD Surgical History (Last Reviewed 07/25/21 @ 14:50 by Eve Bonds, RN) Anesthesia History of third molar tooth extraction (~2000) Status post tubal ligation (~2003) Medical History (Last Reviewed 07/25/21 @ 14:50 by Eve Bonds, RN) Abdominal pain Abnormal Pap smear of cervix (~2013) Anemia Anemia, unspecified Ankle pain (~2016) Anxiety Burton's palsy Chickenpox Chronic back pain Depression Diarrhea Dyslexia Essential hypertension Fracture (~2016) 3 Hearing deficit History of frequent headaches HSV (herpes simplex virus) infection (~1989) Hyperlipidemia Hypothyroidism (~2013) IBS (irritable bowel syndrome) (~2012) Irregular heartbeat DAVID on CPAP Pre-diabetes PTSD (post-traumatic stress disorder) Sleep apnea (~2015) Ulnar neuropathy Physical Therapy Inpatient Evaluation/Re-Eval M1 PT/OT-IP Prior Functional Status Start: 07/26/21 12:30 Freq: NEEDED Status: Active Protocol: Document 07/26/21 11:25 AB (Rec: 07/26/21 12:42 AB [id number]) Medical Review Prior Functional Status Medical History Reviewed Yes Communication able to make needs known Mobility and Gait pt stated that she is independent with all mobilities and ambulation without AD Social History Household Members other Living Arrangements House Number of Floors (Floors) Two Floors Number of Stairs To Enter/Railing? pt will stay at [facility] upon d/c and has elevators to get to the floors: pt is not able to provide home set up infor with regarding to the [facility] pt stated that the house she is living in is a 2 level house but pt stays on first level and has no stept to enter Additional Social History Comment pt stated that she has roommates at home but she plans to stay at [facility] upon d/c. 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 M2 PT-IP Current Condition Start: 07/26/21 12:30 Freq: NEEDED Status: Active Protocol: Document 07/26/21 11:25 AB (Rec: 07/26/21 12:42 AB [id number]) Physical Therapy Current Condition Current Condition Evaluation Date 07/26/21 Treatment Diagnosis s/p cholecystectomy; difficulty in walking Onset Date 07/25/21 M3 PT-IP Subjective Start: 07/26/21 12:30 Freq: NEEDED Status: Active Protocol: Document 07/26/21 11:25 AB (Rec: 07/26/21 12:42 AB [id number]) Subjective Physical Therapy Visit Type Type Initial Evaluation Visit Start Time 11:25 Visit Stop Time 11:45 Total Visit Minutes 20 Number of BOTTOM TURNER Visits 0 Physical Therapy Visit Comments Patient Comments agreeable to do PT Therapy Pain Assessment Pain When Pain Assessed At Rest Pain Present Pain Present Pain Reported Location Abdomen Intensity 3 Scale Used Numeric (0 - 10) Pain Management Techniques Modification of Treatment,Re- positioning,Timing of Activity with Medications M4 PT-IP Mobility and Gait Start: 07/26/21 12:30 Freq: NEEDED Status: Active Protocol: Document 07/26/21 11:25 AB (Rec: 07/26/21 12:42 AB [id number]) PT-Bed Mobility Assessment Rolling Type of Rolling Log Rolling Level of Assist Independent Supine to Sit Supine to Sit Standby Assistance Sit to Supine Sit to Supine Standby Assistance,Bedrails PT-Transfer Assessment Sit to and From Stand Sit to and from Stand Standby Assistance,Contact Guard Assistance,1 Person Assistance,Use of Upper Extremities Equipment Transfer Assistive Device Gait Belt,Front Wheeled Walker Orthotic/Prosthetic Devices or Brace: No Transfers Transfer Destination Bed,Chair Transfer Technique ambulated using FWW Transfer Ability Level of Assist Standby Assistance,Contact Guard Assistance Comments Mobility Comments reviewed abdominal precautions and log roll bed mobility with pt. pt completed sit to stand CGA and ambulated in room using FWW SBAt o CGA. presents with slow antalgic gait with wide GEORGE. pt ambulated to the EOB. completed log roll sit to supine SBA. pt did not roll on her back and prefers to be on her side. completed sitting up SBA but with use of bed rail to assist. pt refused to do more ambulation. completed sit to stand from EOB SBA and step transfer to chair using FWW SBA. positioned pt on chair. call light and table placed within reach. Gait Assessment Gait Gait Assistance Required: Standby Assistance,Contact Guard Assist Distance (Feet) 30 Able to Maintain Weight Bearing Status Yes During Gait Assistive Devices Assistive Device Gait Belt,Front Wheeled Walker Orthotic/Prosthetic Devices or Brace: No Gait Deviations General Gait Pattern Decreased Stride Length, Decreased Feet Clearance,Wide Based Gait Factors Limiting Gait Function Factors Limiting Gait Function Decreased Activity Tolerance, Decreased Strength,Difficulty Following Directions,Limited Range of Motion,Pain,Poor Balance PT-Balance Assessment Sitting Balance and Reactions Static Sitting Balance Ability Good Dynamic Sitting Balance Ability Good Standing Balance and Reactions Static Standing Balance Ability Fair Dynamic Standing Balance Ability Fair Device Used FWW M5 PT-IP Objective Assessments Start: 07/26/21 12:30 Freq: NEEDED Status: Active Protocol: Document 07/26/21 11:25 AB (Rec: 07/26/21 12:42 AB [id number]) Orientation Orientation/Cognition Level of Alertness Alert Orientation Name,Place,Situation Language Function Ability No Deficits Noted Safety Awareness Understands Safety Issues Gross Range of Motion Lower Extremity ROM Assessment Within Functional Limits Strength Lower Extremity Strength Assessment Within Functional Limits Coordination Assessment Gross Coordination Gross Coordination WNL Sensation Assessment Sensation Gross Sensation WNL Muscle Tone Muscle Tone WNL Yes M6 PT-IP Treatment Start: 07/26/21 12:30 Freq: NEEDED Status: Active Protocol: Document 07/26/21 11:25 AB (Rec: 07/26/21 12:42 AB [id number]) Physical Therapy Treatment Education Education Provided Precautions,Safety M7 PT-IP Assessment and Plan Start: 07/26/21 12:30 Freq: NEEDED Status: Active Protocol: Document 07/26/21 11:25 AB (Rec: 07/26/21 12:42 AB [id number]) PT Summary Assessment and Plan Potential Rehabilitation Potential Good Status of Condition at Evaluation Stable Summary Impairments Pain,ROM,Strength,Balance, Coordination,Sensation,Tone, Cognition,Bed Mobility, Transfers,Gait,Activity Tolerance Assessment Summary pt requiring SBA to CGA with mobility using FWW. pt will likely progress during hospital stay. pt plans to go to [facility] upon d/c untial able to be more independent to go back home. will continue to assess progress. Goals Bed Mobility Goal Independent Transfer Goal Independent,Front Wheeled Walker Gait Goal Independent,Front Wheel Walker Gait Distance 300 Other Goals improve ambulation without AD SBA 250 ft Days to Meet Goals 10 Frequency of Treatment Frequency Of Treatment Once a Day Treatment Plan Physical Therapy Treatment Plan Bed Mobility Training,Transfer Training,Gait Training, Therapeutic Exercise,Balance Retraining,Post Op Education, Discharge Planning,Hot or Cold Pack,Neuromuscular Re-ed, Coordination Retraining,Manual Therapy Precautions Abdominal Surgery Precautions Log Roll,Lifting Restrictions, Gait Belt above Incisional Area Recommendations To Nursing Amount of Assist Needed 1 Person Assist Discharge Recommendations PT Discharge Recommendations Home with Assistance Equipment Needed for Home Before FWW Discharge Transportation Needs at Discharge Private Vehicle
--- NOTE | 2021-07-26 15:53 | CM.DANOTE ---
Patient is a 41 yo female who was admitted on 07/25/21 for Lap Lupe. Pt has [facility] and [facility] for insurance and her PCP is Dr. Shyla Perez. EMR was reviewed. Per MD, pt with elective Lap Lupe that ended up being open procedure and therefore admitted but likely will not have any needs but ordered PT/OT. Per OT, pt participated well and has appearance of maybe a delay but no dx and was able to answer appropriately and alert and oriented and pt ambulated SBA for mobility and ADL's. 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 Pt states after speaking with OT regarding her bed on the floor at home, she has called [facility] and they are agreeable with pt staying at their facility while recovering from her surgery but she will need to bring her own bed and pt has already called her brother to help with moving a bed from their mother's house. Pt denies having any JOHN or assigned CM through [facility]. Pt states she is independent at baseline and that either her brother or Pippa ([phone]) from [employer] may provide transport at d/c. Plan: SW to follow for any further identified needs and confirm safe plan of d/c to home (or [facility]) with local family and friend assist. ALEXIS Cortez
[2021-07-27] VITALS (7 sets, daily range): BP systolic 119–127; BP diastolic 59–80; PULSE 79–86; RESP 16–20; TEMP 36.3–36.8; O2SAT 90–95
[2021-07-27] MEDS: ACETAMINOPHEN 325 MG TABLET 650 MG PO ×2 (06:03→13:40)
[2021-07-27] MEDS: OXYCODONE IR 10 MG TABLET PO (06:04)
[2021-07-27 06:20] LABS: Add Manual Diff / Slide Review NO; Basophils Absolute Auto 0 /uL (0-100); Basophils Percent Auto 0.3 % (0-2); Eosinophils Absolute Auto 0 /uL (0-450); Eosinophils Percent Auto 0.7 % (2-4); Hemoglobin 9.3 g/dL (12.0-16.0); Lymphocytes Absolute Auto 1700 /uL (1100-4500); Lymphocytes Percent Auto 26.7 % (25-40); Mean Corpuscular HGB Conc 32.2 % (30-36); Mean Corpuscular Hemoglobin 23.6 PG (26-34); Mean Corpuscular Volume 73.1 fL (80-100); Monocytes Absolute Auto 500 /uL (0-900); Monocytes Percent Auto 7.4 % (3-14); Neutrophils Absolute Auto 4100 /uL (1500-7000); Neutrophils Percent Auto 64.9 % (50-75); Platelet Count 327 X10^3/uL (150-400); Red Blood Cell Count 3.96 X10^6/uL (4.0-5.2); Red Cell Distribution Width 16.4 % (11.6-14.8); White Blood Cell Count 6.3 X10^3/uL (4.5-11.0)
[2021-07-27 06:25] LABS: Alanine Aminotransferase 64 IU/L (<35); Albumin 3.4 g/dL (3.5-5.0); Albumin Globulin Ratio 1.1 (1.0-2.8); Alkaline Phosphatase 105 U/L (38-126); Aspartate Aminotransferase 51 IU/L (14-36); BUN Creatinine Ratio 11.5 (6-22); Bilirubin Total 0.6 mg/dL (0.2-1.3); Blood Urea Nitrogen 7 mg/dL (7-17); Calcium 8.7 mg/dL (8.4-10.2); Carbon Dioxide 37 mmol/L (22-32); Chloride 98 mmol/L (98-107); Estimated Glomerular Filt Rate > 60.0 mL/min (>60); Globulin 3.2 g/dL (1.7-4.1); Glucose 106 mg/dL (70-100); HEMOLYSIS < 15 (0-50); Potassium 3.5 mmol/L (3.4-5.1); Sodium 137 mmol/L (137-145); Total Protein 6.6 g/dL (6.3-8.2)
[2021-07-27 06:26] LABS: Magnesium 1.8 mg/dL (1.6-2.3); Phosphorous 3.3 mg/dL (2.5-4.5)
[2021-07-27] MEDS: LEVOTHYROXINE 88 MCG TABLET PO (08:53)
--- NOTE | 2021-07-27 08:57 | PM.DS.1 ---
History of Present Illness History of Present Illness Date Patient Seen: 07/27/21 Time Patient Seen: 08:57 Chief complaint: SDC Narrative: 41-year-old woman with biliary colic and gallstones on ultrasound presented for elective laparoscopic cholecystectomy Discharge Providers Provider Date of admission: 07/25/21 14:12 Discharge Date: 07/27/21 Primary care physician: Shyla Perez DO Consults: 07/25/21 19:02 Consult to Occupational Therapy Evaluate & Treat Comment: Physician Instructions: Evaluate and treat Consult to Physical Therapy Evaluate & Treat Comment: Physician Instructions: Evaluate and Treat Discharge provider: Jony Mccloud MD Summary Hospital Course Discharge Diagnosis: Open cholecystectomy Obesity Hospital Course: Patient underwent a laparoscopic converted to open cholecystectomy. Is a difficult operation secondary to the amount of adhesive disease in the right upper quadrant. Intraoperative findings were consistent with either acute on chronic cholecystitis or gallbladder malignancy. She tolerated the operation well abdominal drain was removed on postoperative day 2. She is at higher risk of perioperative morbidity and mortality secondary to her obesity. At discharge she is tolerating a diet, ambulatory, no nausea wound drainage or fever. Pain is adequately controlled. Status at Discharge Cognitive/behavioral status at discharge: oriented Time Spent with Patient Time spent: Greater than 30 minutes Exam Vital Signs (past 8 hours): - 07/27/21 02:00 07/27/21 06:00 07/27/21 06:05 Temperature 98.2 F Pulse Rate 82 Respiratory Rate 20 Blood Pressure 123/80 Pulse Oximetry 95 94 07/27/21 06:11 Temperature 98.2 F Pulse Rate 82 Respiratory Rate 20 Blood Pressure 123/80 Pulse Oximetry 94 Oxygen Delivery Method Room Air Oxygen Flow Rate 94 Narrative Exam Narrative: Gen-Adult woman alert and oriented Abdomen-Soft, appropriately tender to palpation. Incision wound right upper quadrant clean dry intact.? Drain serosanginous no bile-removed Objective Labs Result Diagrams: 07/27/21 05:37 07/27/21 05:37 Labs: Laboratory Results - last 24 hr 07/27/21 07/27/21 07/27/21 05:37 05:37 05:37 WBC 6.3 RBC 3.96 L Hgb 9.3 L Hct 29.0 L MCV 73.1 L MCH 23.6 L MCHC 32.2 RDW 16.4 H Plt Count 327 Neut % (Auto) 64.9 Lymph % (Auto) 26.7 [place] % (Auto) 7.4 Eos % (Auto) 0.7 L Baso % (Auto) 0.3 Neut # (Auto) 4100 Lymph # (Auto) 1700 [place] # (Auto) 500 Eos # (Auto) 0 Baso # (Auto) 0 Sodium 137 Potassium 3.5 Chloride 98 Carbon Dioxide 37 H BUN 7 Creatinine 0.61 Estimated GFR > 60.0 BUN/Creatinine Ratio 11.5 Glucose 106 H Calcium 8.7 Phosphorus 3.3 Magnesium 1.8 Total Bilirubin 0.6 AST 51 H ALT 64 H Alkaline Phosphatase 105 Total Protein 6.6 Albumin 3.4 L Globulin 3.2 Albumin/Globulin Ratio 1.1 [facility] Medical History Abdominal pain Abnormal Pap smear of cervix (~2013) Anemia Anemia, unspecified Ankle pain (~2016) Anxiety Burton's palsy Chickenpox Chronic back pain Depression Diarrhea Dyslexia Essential hypertension Fracture (~2016) 3 Hearing deficit History of frequent headaches HSV (herpes simplex virus) infection (~1989) Hyperlipidemia Hypothyroidism (~2013) IBS (irritable bowel syndrome) (~2012) Irregular heartbeat DAVID on CPAP Pre-diabetes PTSD (post-traumatic stress disorder) Sleep apnea (~2015) Ulnar neuropathy Surgical History Anesthesia History of ankle surgery (~2016) History of section History of third molar tooth extraction (~2000) Status post tubal ligation (~2003) Family History Grandfather Cancer Grandmother Heart disease High cholesterol Stroke Mother Age: 68 Atrial fibrillation Hypertension Obesity Diabetes mellitus Brother No problems noted. Father No problems noted. Social History household members: other Smoking Status: Never smoker alcohol intake: never Discharge Plan Discharge Plan Patient Disposition: Assisted Living Other facility: [facility] Provider Discharge Comment: -Okay to shower today. -Do not submerge wounds in water until seen in follow-up. -No lifting >20 lbs x 4 weeks. -Walking only for exercise for 4 weeks. -No driving while taking narcotics. Discharge orders & Medications Discharge Orders: Discharge (Order); Ordered 12/02/21 Ordered By: Jony Mccloud Prescriptions: New ibuprofen 200 mg tablet 400 mg PO Q6H Qty: 60 0RF docusate sodium [Colace] 100 mg capsule 100 mg PO BID Qty: 30 0RF oxycodone 5 mg tablet See Rx Instructions .ROUTE .COMPLEX PRN (Reason: pain) Qty: 30 0RF Rx Instructions: 1-2 tabs every 6 hrs as needed for pain acetaminophen [Tylenol] 325 mg capsule 650 mg PO QID PRN (Reason: pain) Qty: 60 0RF Continued (DME) Test Strips - Freestyle See Rx Instructions .Route .MEDSUPPLY Qty: 100 2RF Rx Instructions: As directed (DME) lancets [BD Ultra Fine Lancets] 33 gauge misc See Dose Instructions .ROUTE .MEDSUPPLY Qty: 250 6RF Dose Instruction: As directed Rx Instructions: Use to test blood sugar 1 to 2 times daily hydrochlorothiazide 25 mg tablet 25 mg PO DAILY Qty: 30 1RF ferrous sulfate [Iron (ferrous sulfate)] 325 mg (65 mg iron) tablet 325 mg PO QDAY Qty: 90 2RF levothyroxine 88 mcg tablet 88 mcg PO DAILY Qty: 90 3RF sertraline 100 mg tablet 200 mg PO DAILY Qty: 60 5RF buspirone 10 mg tablet 10 mg PO BID 0RF (DME) Resmed Airsense 10 CPAP Qty: 1 0RF Dose Instruction: As directed Label Comments: Pressure: 7-14 cmH2O DME: [employer] Rx Instructions: As directed Follow up/Referrals: Jony Mccloud MD [Physician] - 2 Weeks Diet/Activity/Treatments Diet: Diet as Tolerated Skin/Wound/Dressing Care Report to your healthcare provider any signs of infection, such as:: chills, fever, increased pain, unusual drainage and unusual redness Visit Report/Discharge Packet Instructions: DI for Open Cholecystectomy Discharge Data Primary Care Provider: Shyla Perez
--- NOTE | 2021-07-27 09:08 | OT.IP.TRT ---
Current Diagnoses Calculus of bile duct without cholangitis or cholecystitis without obstruction (07/25/21) Surgery Performed Operation Date: 07/25/21 15:45 Actual Procedures p Laparoscopic Cholecystectomy converted to open laparotomy with gall bladder removal and cholangiogram - Jony Mccloud MD Occupational Therapy Treatment Note M2 OT-IP Current Condition Start: 07/26/21 13:02 Freq: Status: Active Protocol: Document 07/26/21 13:03 [facility] (Rec: 07/26/21 13:18 [facility] [id number]) Occupational Therapy Current Condition Current Condition Evaluation Date 07/26/21 Treatment Diagnosis S/P open cholecystectomy Diagnosis Onset Date 07/25/21 Post Operative Precautions Abdominal Surgery Precautions Log Roll,Lifting Restrictions, Gait Belt above Incisional Area M3 OT- IP Subjective and Pain Start: 07/26/21 13:02 Freq: Status: Active Protocol: Document 07/27/21 09:11 [facility] (Rec: 07/27/21 09:19 [facility] [id number]) OT- Subjective Occupational Therapy Visit Type Type Treatment Note Visit Start Time 0855 Visit Stop Time 908 Total Visit Minutes 13 Occupational Therapy Visit Comments Patient Comments Pt agreed to get up to change out her brief. Patient/Caregiver Goals To go to [facility], place when she works to recover. OT Pain Assessment Pain When Pain Assessed At Rest Pain Present Pain Present Pain Reported Location Abdomen Intensity 3 Scale Used Numeric (0 - 10) M4 OT- IP ADL's Start: 07/26/21 13:02 Freq: Status: Active Protocol: Document 07/27/21 09:11 [facility] (Rec: 07/27/21 09:19 [facility] [id number]) OT GBY-[id number]-Qqxlqet General Evaluation Self-Feeding Ability Independent OT ADL-Grooming Comments OT Grooming Comments after set-up in bed. OT ADL-Oral Care Comments Oral Care Comments NOt performed. OT ADL-Dressing General Eval Lower Body Dressing Ability Standby Assistance Areas Needing Assistance Underpants/Brief Comments OT Dressing Comments Able to use shelter supervisor to mya/ doff her brief. Pt states not wanting to practice use of sock aid at this time. OT ADL-Toileting General Evaluation Toileting Ability Standby Assistance Comments OT Toileting Comments Pt able to change out her brief and clean herself with wet-ones. OT ADL-Bathing Comments OT Bathing Comments Pt states too tired to shower right now. Suggested pt to ask [facility] if they have a shower chair or that she may need to bring one with her to the [facility]. M5 OT- IP IADL's Start: 07/26/21 13:02 Freq: Status: Active Protocol: Document 07/26/21 13:03 [facility] (Rec: 07/26/21 13:18 [facility] [id number]) OT-Instrumental Activities of Daily Living Home Safety Awareness Awareness of Need for Assistance at Home Good Awareness Ability to Problem Solve Emergency Able to Problem Solve Situations Finished Goods Inspector Finished Goods Inspector Comments At this time pt would need assist for her needs. Driving Driving Comments Pt does not drive and takes the bus. M6 OT- IP Functional Cognition Start: 07/26/21 13:02 Freq: Status: Active Protocol: Document 07/27/21 09:11 [facility] (Rec: 07/27/21 09:19 [facility] [id number]) Cognitive Factors Limiting Selfcare Function Cognitive Comments Cognitive Assessment Comments Pt appears to be at baseline for needs. M7 OT- IP Mobility and Balance Start: 07/26/21 13:02 Freq: Status: Active Protocol: Document 07/27/21 09:11 [facility] (Rec: 07/27/21 09:19 [facility] [id number]) OT- Bed Mobility Assessment Rolling Type of Rolling Roll to Left Level of Assistance Standby Assistance Supine to Sit Supine to Sit Assist Standby Assistance OT-Transfer Assessment Sit to and From Stand Sit to and from Stand Standby Assistance Comments Mobility Comments Suggested may be helpful to get a bed rail to help her ease with bed mobility. In addition may be helpful to get a FWW. OT- Balance Assessment Sitting Balance and Reactions Static Sitting Balance Ability Normal Dynamic Sitting Balance Ability Good Standing Balance and Reactions Static Standing Balance Ability Good M8 OT- IP Objective Assessments Start: 07/26/21 13:02 Freq: Status: Active Protocol: Document 07/26/21 13:03 [facility] (Rec: 07/26/21 13:18 [facility] [id number]) OT Gross Range of Motion Upper Extremity Range of Motion Assessment Within Functional Limits OT-Muscle Tone Assessment Muscle Tone WNL Yes M9 OT- IP Assessment and Plan Start: 07/26/21 13:02 Freq: Status: Active Protocol: Document 07/27/21 09:11 [facility] (Rec: 07/27/21 09:19 [facility] [id number]) OT Summary Assessment and Plan Potential Rehabilitation Potential Good Analytic Complexity at Evaluation Low Summary OT Impairments Pain,Balance,Functional Mobility,Dressing,Toileting, Bathing,Toilet Transfers, Shower Transfers,Activity Tolerance Progress Towards Goals Progressing Toward Goals Assessment Summary Pt looking to go to her [employer] that she works at to recover. Suggested that pt gets a shower chair if the [facility] does not have one, toilet paper aid , and possible FWW. Pt has no further OT needs, therefore discharge pt from OTservices. Discharge Recommendations OT Discharge Recommendations Home with Assistance Other Discharge Recommendations Pt gong to [facility]. Home Equipment Needs LB dressing equipment, toilet paper aid, FWW, shower chair Transportation Needs at Discharge Private Vehicle
[2021-07-27] MEDS: SERTRALINE 50 MG TABLET 200 MG PO (09:32)
[2021-07-27] MEDS: BUSPIRONE 5 MG TABLET 10 MG PO (09:32)
[2021-07-27] MEDS: hydroCHLOROthiazide 25 MG TABLET PO (09:32)
[2021-07-27] MEDS: ENOXAPARIN 40 MG/0.4 ML SYRINGE SUBCUT (09:32)
--- NOTE | 2021-07-27 11:15 | PT.IPTN ---
Current Diagnoses Calculus of bile duct without cholangitis or cholecystitis without obstruction (07/25/21) Surgery Performed Operation Date: 07/25/21 15:45 Actual Procedures p Laparoscopic Cholecystectomy converted to open laparotomy with gall bladder removal and cholangiogram - Jony Mccloud MD Physical Therapy Treatment Note M2 PT-IP Current Condition Start: 07/26/21 12:30 Freq: NEEDED Status: Active Protocol: Document 07/26/21 11:25 [facility] (Rec: 07/26/21 12:42 [facility] [id number]) Physical Therapy Current Condition Current Condition Evaluation Date 07/26/21 Treatment Diagnosis s/p cholecystectomy; difficulty in walking Onset Date 07/25/21 M3 PT-IP Subjective Start: 07/26/21 12:30 Freq: NEEDED Status: Active Protocol: Document 07/27/21 11:15 [facility] (Rec: 07/27/21 12:31 AB [id number]) Subjective Physical Therapy Visit Type Type Treatment Note Visit Start Time 11:15 Visit Stop Time 11:35 Total Visit Minutes 20 Number of MEDICAL DIRECTOR Visits 0 Physical Therapy Visit Comments Patient Comments agreeable to do PT Therapy Pain Assessment Pain When Pain Assessed At Rest Pain Present Pain Present Pain Reported Location Abdomen Intensity 3 Scale Used Numeric (0 - 10) M4 PT-IP Mobility and Gait Start: 07/26/21 12:30 Freq: NEEDED Status: Active Protocol: Document 07/27/21 11:15 [facility] (Rec: 07/27/21 12:31 AB [id number]) PT-Bed Mobility Assessment Rolling Type of Rolling Log Rolling Level of Assist Standby Assistance Supine to Sit Supine to Sit Standby Assistance,Bedrails Sit to Supine Sit to Supine Standby Assistance PT-Transfer Assessment Sit to and From Stand Sit to and from Stand Standby Assistance Equipment Transfer Assistive Device Gait Belt,Front Wheeled Walker Orthotic/Prosthetic Devices or Brace: No Transfers Transfer Destination Toilet Transfer Technique ambulated using FWW Transfer Ability Level of Assist Standby Assistance,Use of Upper Extremities Comments Mobility Comments pt completed log roll supine to sit SBA with use of bed rail. required increase time to complete task. completed sit to stand SBA and ambulated out in the hallway using FWW SBA ~ 250 ft. presents with antalgic gait with decrease step length. pt ambulated back to her rooma nd requested to use the toilet. completed toileting needs SBa. ambulated towards the sink using fWW SBA and was able to maintain standing balance leaning against the sink SBA while completing handwashing. pt ambulated towards the bed using FWW. pt requested to go back to bed and completed sit to supine log roll using bed rail SBA. positioned pt on the bed. call light and table placed within reach. Gait Assessment Gait Gait Assistance Required: Standby Assistance Distance (Feet) 250 Able to Maintain Weight Bearing Status Yes During Gait Assistive Devices Assistive Device Gait Belt,Front Wheeled Walker Orthotic/Prosthetic Devices or Brace: No Gait Deviations General Gait Pattern Antalgic Factors Limiting Gait Function Factors Limiting Gait Function Decreased Activity Tolerance, Decreased Strength,Poor Balance M5 PT-IP Objective Assessments Start: 07/26/21 12:30 Freq: NEEDED Status: Active Protocol: Document 07/26/21 11:25 [facility] (Rec: 07/26/21 12:42 [facility] [id number]) Orientation Orientation/Cognition Level of Alertness Alert Orientation Name,Place,Situation Language Function Ability No Deficits Noted Safety Awareness Understands Safety Issues Gross Range of Motion Lower Extremity ROM Assessment Within Functional Limits Strength Lower Extremity Strength Assessment Within Functional Limits Coordination Assessment Gross Coordination Gross Coordination WNL Sensation Assessment Sensation Gross Sensation WNL Muscle Tone Muscle Tone WNL Yes M6 PT-IP Treatment Start: 07/26/21 12:30 Freq: NEEDED Status: Active Protocol: Document 07/27/21 11:15 [facility] (Rec: 07/27/21 12:31 AB [id number]) Physical Therapy Treatment Education Education Provided Safety M7 PT-IP Assessment and Plan Start: 07/26/21 12:30 Freq: NEEDED Status: Active Protocol: Document 07/27/21 11:15 [facility] (Rec: 07/27/21 12:31 AB [id number]) PT Summary Assessment and Plan Potential Rehabilitation Potential Good Summary Impairments Pain,ROM,Strength,Balance,Bed Mobility,Transfers,Gait, Activity Tolerance Progress Towards Goals Progressing Toward Goals Assessment Summary pt progressing in mobility but continues to need FWW for steadiness. pt plans to go to an RETIREMENT where she works so that she will have assistance as needed. pt may d/c to RETIREMENT when stable. Goals Bed Mobility Goal Independent Transfer Goal Independent,Front Wheeled Walker Gait Goal Independent,Front Wheel Walker Gait Distance 300 Other Goals improve ambulation without AD SBA 250 ft Days to Meet Goals 10 Frequency of Treatment Frequency Of Treatment Once a Day Treatment Plan Physical Therapy Treatment Plan Bed Mobility Training,Transfer Training,Gait Training, Therapeutic Exercise,Balance Retraining,Post Op Education, Discharge Planning,Hot or Cold Pack,Neuromuscular Re-ed, Coordination Retraining,Manual Therapy Precautions Abdominal Surgery Precautions Log Roll,Lifting Restrictions, Gait Belt above Incisional Area Recommendations To Nursing Amount of Assist Needed 1 Person Assist Discharge Recommendations PT Discharge Recommendations Home with Assistance Equipment Needed for Home Before FWW Discharge Transportation Needs at Discharge Private Vehicle
--- NOTE | 2021-07-27 11:32 | CM.DPC ---
Addendum entered by Arabella Yusuf R.N. 07/27/21 14:32: CM spoke with Wanda at [facility] and she agreed to set patient up with a hotel voucher at [facility] today while her brother works with her to get her a bed at [facility]. Patient stated understanding and is in agreement with the DC plan. CM working on getting medicaid transport set up to transport the patient to the [facility] today between 330 and 4pm. Arabella Yusuf RN Case mangdelfino Original Note: DCP Continued: KENTON spoke with [facility] to check on DC plan. CM was told patient does have a room she can use at there facility however there is no bed in the room and the patient will not have any services provided by the facility. Patient does seem to have some cognitive deficits when CM met with her. Patient stated her plan is to have her mother bring a bed to [facility] to use in the room. However does not have her mothers phone number and stated she is using her brother Myke to coordinate bed placement at [place]. CM attempted x2 to call patients brother Myke but was unable to reach him. CM LVM for Myke to return CM phone call. CM spoke with [facility] again and they reiterated that the patient can stay at there facility since she works there but will not be cared for by staff. CM will explain this to the patient and see if a plan to have a bed placed at her current residence is a more realistic plan. Patient currently rents a room in [place] but her mattress is on the floor and will need an elevated bed to DC back to her home. Kenton contacted Wanda Calderón with the [facility] about getting a motel voucher for the patient while she works on getting herself a bed at either her home or [place]. KENTON will continue to work with the patient to facilitate a safe DC plan today. Arabella Yusuf RN Case Manger
--- NOTE | 2021-07-27 11:50 | PC.NURSE ---
Addendum entered by Stacia Hutchinson R.N. 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 Walker sent with patient. Original Note: Assess- Patient is alert and oriented x3, she states that her pain is a 3/10. She has a horizontal incision across her lower abdomen that is open to air with macarena intact. took out her vita drain earlier and she tolerated this well. Patient has discharge orders to go today, we are waiting to see what her plan is. Arabella from discharge planning is working on this and will contact her brother.
== END 2021-07-27 15:48 | DRG 415 ==
LOC: OR 14:12 → AC 16:24
PROVIDERS: Admitting Provider Surgery; PCP Family Medicine; Referring Provider Surgery; Visit Provider Surgery
PROC: 0FT44ZZ Resection of Gallbladder, Percutaneous Endoscopic Approach (ICD-10-PCS; CPT 47562; principal; 2021-07-25 15:45)
DX: K80.10 Calculus of gallbladder with chronic cholecystitis without obstruction (principal); Z68.41 Body mass index [BMI] 40.0-44.9, adult; K66.0 Peritoneal adhesions (postprocedural) (postinfection); E66.01 Morbid (severe) obesity due to excess calories; I10 Essential (primary) hypertension; E03.9 Hypothyroidism, unspecified; G47.33 Obstructive sleep apnea (adult) (pediatric); Z20.822 Contact with and (suspected) exposure to COVID-19
CPT/HCPCS: 36415; 47605; 74300; 80053; 82962; 83735; 84100; 85025; 97116; 97161; 97165; 97530; 97535; C9290; J0690; J1100; J1170; J1650; J1885; J2250; J2405; J2704; J3010

== ENCOUNTER 2021-07-29 12:33 | Emergency (ER) | payer OTHER, MEDICAID, SELFPAY ==
[2021-07-25 20:36] VITALS: BMI 40.3
[2021-07-29] VITALS (7 sets, daily range): BP systolic 119–126; BP diastolic 73–77; PULSE 75–95; RESP 17–21; TEMP 36.7; O2SAT 95–99
[2021-07-29 13:10] LABS: Add Manual Diff / Slide Review NO; Basophils Absolute Auto 0 /uL (0-100); Basophils Percent Auto 0.6 % (0-2); Eosinophils Absolute Auto 100 /uL (0-450); Eosinophils Percent Auto 1.9 % (2-4); Hematocrit 31.7 % (36-46); Hemoglobin 10.3 g/dL (12.0-16.0); Lymphocytes Absolute Auto 1200 /uL (1100-4500); Lymphocytes Percent Auto 23.4 % (25-40); Mean Corpuscular HGB Conc 32.4 % (30-36); Mean Corpuscular Hemoglobin 23.6 PG (26-34); Mean Corpuscular Volume 72.9 fL (80-100); Monocytes Absolute Auto 200 /uL (0-900); Monocytes Percent Auto 4.6 % (3-14); Neutrophils Absolute Auto 3700 /uL (1500-7000); Neutrophils Percent Auto 69.5 % (50-75); Platelet Count 389 X10^3/uL (150-400); Red Blood Cell Count 4.35 X10^6/uL (4.0-5.2); Red Cell Distribution Width 16.6 % (11.6-14.8); White Blood Cell Count 5.3 X10^3/uL (4.5-11.0)
[2021-07-29 13:27] LABS: Alanine Aminotransferase 99 IU/L (<35); Albumin 3.9 g/dL (3.5-5.0); Albumin Globulin Ratio 1.1 (1.0-2.8); Alkaline Phosphatase 197 U/L (38-126); Aspartate Aminotransferase 89 IU/L (14-36); BUN Creatinine Ratio 11.7 (6-22); Bilirubin Total 0.4 mg/dL (0.2-1.3); Blood Urea Nitrogen 7 mg/dL (7-17); Calcium 9.4 mg/dL (8.4-10.2); Carbon Dioxide 36 mmol/L (22-32); Chloride 97 mmol/L (98-107); Estimated Glomerular Filt Rate > 60.0 mL/min (>60); Globulin 3.6 g/dL (1.7-4.1); Glucose 140 mg/dL (70-100); HEMOLYSIS < 15 (0-50); Lipase 29 U/L (23-300); Potassium 3.2 mmol/L (3.4-5.1); Sodium 140 mmol/L (137-145); Total Protein 7.5 g/dL (6.3-8.2)
--- NOTE | 2021-07-29 14:02 | ED_ITS ---
HPI - Abdominal Pain General Chief Complaint: Abdominal Pain Stated Complaint: Gallbladder Sx Saturday Time Seen by Provider: 07/29/21 12:42 Source: patient and EMS Mode of arrival: EMS History of Present Illness HPI narrative: 41-year-old female presents status post cholecystectomy on 07/25/2021 it started as laparoscopic converted to open. She was discharged from the hospital 2 days ago. She has been doing well and passing gas, but no bowel movement, until today when she suddenly got weak and nauseous. He vomited once. She denies any fever or chills. She is having some pain across her incision but no significant abdominal pain. No chest pain or palpitations., shortness of breath. She has been doing well at home until now. Related Data Home Medications Medication Instructions Recorded Confirmed Resmed Airsense 10 CPAP #1 ea 02/03/19 07/25/21 buspirone 10 mg tablet 10 mg PO BID 06/03/19 07/25/21 Previous Rx's Medication Instructions Recorded sertraline 100 mg tablet 200 mg PO DAILY #60 tab 01/13/18 Test Strips - Freestyle #100 each 05/09/20 hydrochlorothiazide 25 mg tablet 25 mg PO DAILY #30 tab 04/13/21 lancets 33 gauge (BD Ultra Fine #250 ea 04/13/21 Lancets) ferrous sulfate 325 mg (65 mg 325 mg PO QDAY #90 tab 07/04/21 iron) tablet (Iron (ferrous sulfate)) levothyroxine 88 mcg tablet 88 mcg PO DAILY #90 tab 07/12/21 acetaminophen 325 mg capsule 650 mg PO QID PRN #60 cap 07/27/21 (Tylenol) acetaminophen 325 mg capsule 650 mg PO QID PRN #60 cap 07/27/21 (Tylenol) docusate sodium 100 mg capsule 100 mg PO BID #30 cap 07/27/21 (Colace) ibuprofen 200 mg tablet 400 mg PO Q6H #60 tab 07/27/21 oxycodone 5 mg tablet See Rx Instructions .ROUTE 07/27/21 .COMPLEX PRN #30 tab oxycodone 5 mg tablet See Rx Instructions .ROUTE 07/27/21 .COMPLEX PRN #30 tab Allergies Allergy/AdvReac Type Severity Reaction Status Date / Time No Known Drug Allergies Allergy Verified 07/25/21 14:51 Review of Systems Review of Systems Narrative: GENERAL: Denies chills, fatigue, malaise, fever, sweats, travel HEENT: Denies sinus pain, ear pain, sore throat, difficulty swallowing, neck pain RESPIRATORY: Denies dyspnea, cough, wheezing, hemoptysis, sputum. CARDIOVASCULAR: Denies chest pain, palpitations, orthopnea, edema GASTROINTESTINAL: See HPI : Denies dysuria, frequency, incontinence, hematuria, urinary retention, flank pain. MUSCULOSKELETAL: Denies weakness, joint pain, or bony pain SKIN: No rash, no erythema, no pruritus NEUROLOGIC: Denies weakness, dizziness, headache, numbness, change in speech, confusion PSYCHIATRIC: No concerning psychosocial issues. 12 point review of systems is negative except for those stated above and HPI Patient History Medical History (Updated 07/29/21 @ 18:53 by Olivia Natarajan DO) Abdominal pain Abnormal Pap smear of cervix (~2013) Anemia Anemia, unspecified Ankle pain (~2016) Anxiety Burton's palsy Chickenpox Chronic back pain Depression Diarrhea Dyslexia Essential hypertension Fracture (~2016) 3 Hearing deficit History of frequent headaches HSV (herpes simplex virus) infection (~1989) Hyperlipidemia Hypothyroidism (~2013) IBS (irritable bowel syndrome) (~2012) Irregular heartbeat DAVID on CPAP Pre-diabetes PTSD (post-traumatic stress disorder) Sleep apnea (~2015) Ulnar neuropathy Surgical History Anesthesia History of ankle surgery (~2016) History of section History of third molar tooth extraction (~2000) Status post tubal ligation (~2003) Family History Grandfather Cancer Grandmother Heart disease High cholesterol Stroke Mother Age: 68 Atrial fibrillation Hypertension Obesity Diabetes mellitus Brother No problems noted. Father No problems noted. Social History household members: other Smoking Status: Never smoker alcohol intake: never Smoking Status: Never smoker Substance Use Type: marijuana Exam Initial Vital Signs Initial Vital Signs: Vital Signs Temperature 98.1 F 07/29/21 12:36 Pulse Rate 95 H 07/29/21 12:36 Respiratory Rate 18 07/29/21 12:36 Blood Pressure 120/76 07/29/21 12:36 Pulse Oximetry 99 12/04/21 12:36 GENERAL: Alert well-appearing 41-year-old female in no acute distress. HEENT: Head atraumatic,EOMI, pupils reactive, face symmetric, moist mucous membranes CARDIOVASCULAR: Regular rate and rhythm without murmurs, rubs or gallops. RESPIRATORY: Breath sounds equal bilaterally, no wheezes rales or rhonchi. ABDOMEN: Soft incision site clean and dry. No tenderness and right upper quadrant normal bowel sounds. EXTREMITIES: Normal range of motion, no clubbing or edema. Neurovascularly intact NEUROLOGICAL: Alert and oriented x4.Normal gait and speech. SKIN: Warm, dry, no laceration, no petechiae, no rashes or lesions. Course Orders Ordered: ED Orders 07/29/21 12:55 Complete Blood Count AUTO DIFF Stat Comprehensive Metabolic Panel Stat Lipase Stat 07/29/21 14:09 CT abdomen pelvis w con Stat 07/29/21 14:18 Ictotest Urine Stat Urine Culture Stat Urine Microscopic Stat Discontinued Medications Magnesium Citrate (Magnesium Citrate 300 Ml Solution) 300 ml PO NOW ONE Stop: 07/29/21 16:02 Last Admin: 07/29/21 16:22 Dose: 300 ml Documented by: TEOFILO Vital Signs Vital signs: Vital Signs - 8 hr 07/29/21 12:36 07/29/21 12:49 07/29/21 13:00 Temperature 98.1 F Pulse Rate 95 H 94 H 80 Respiratory Rate 18 19 21 Blood Pressure 120/76 122/73 Pulse Oximetry 99 95 95 07/29/21 13:30 07/29/21 14:00 07/29/21 16:06 Temperature Pulse Rate 76 78 78 Respiratory Rate 21 17 Blood Pressure 119/74 122/74 Pulse Oximetry 95 97 98 07/29/21 16:07 Temperature Pulse Rate 75 Respiratory Rate 20 Blood Pressure 126/77 Pulse Oximetry 98 MDM - Abdominal Pain Lab Data Result diagrams: 07/29/21 12:55 07/29/21 12:55 Labs: Lab Results 07/29/21 07/29/21 07/29/21 Range/Units 12:55 12:55 14:18 WBC 5.3 (4.5-11.0) X10^3/uL RBC 4.35 (4.0-5.2) X10^6/uL Hgb 10.3 L (12.0-16.0) g/dL Hct 31.7 L (36-46) % MCV 72.9 L (80-100) fL MCH 23.6 L (26-34) PG MCHC 32.4 (30-36) % RDW 16.6 H (11.6-14.8) % Plt Count 389 (150-400) X10^3/uL Neut % (Auto) 69.5 (50-75) % Lymph % (Auto) 23.4 L (25-40) % Gillespie % (Auto) 4.6 (3-14) % Eos % (Auto) 1.9 L (2-4) % Baso % (Auto) 0.6 (0-2) % Neut # (Auto) 3700 (9628-5428) /uL Lymph # (Auto) 1200 (6351-0657) /uL Gillespie # (Auto) 200 (0-900) /uL Eos # (Auto) 100 (0-450) /uL Baso # (Auto) 0 (0-100) /uL Sodium 140 (137-145) mmol/L Potassium 3.2 L (3.4-5.1) mmol/L Chloride 97 L (98-107) mmol/L Carbon Dioxide 36 H (22-32) mmol/L BUN 7 (7-17) mg/dL Creatinine 0.60 (0.52-1.04) mg/dL Estimated GFR > 60.0 (>60) mL/min BUN/Creatinine Ratio 11.7 (6-22) Glucose 140 H (70-100) mg/dL Calcium 9.4 (8.4-10.2) mg/dL Total Bilirubin 0.4 (0.2-1.3) mg/dL AST 89 H (14-36) IU/L ALT 99 H (<35) IU/L Alkaline Phosphatase 197 H D (38-126) U/L Total Protein 7.5 (6.3-8.2) g/dL Albumin 3.9 (3.5-5.0) g/dL Globulin 3.6 (1.7-4.1) g/dL Albumin/Globulin Ratio 1.1 (1.0-2.8) Lipase 29 (23-300) U/L Ur Bilirubin Confirm (Negative) Urine RBC >100/hpf H (0-5/HPF) Urine WBC 5-10/hpf H (0-5/HPF) Ur Squamous Epith Cells 1-5 /hpf (0-5/HPF) Ur Transition Epith Cell 1-5/hpf (0-5/HPF) Urine Bacteria Moderate (10-30) H (None) Urine Mucus 1+ H (Negative) Ur Culture Indicated? Specimen cultured 07/29/21 Range/Units 14:18 WBC (4.5-11.0) X10^3/uL RBC (4.0-5.2) X10^6/uL Hgb (12.0-16.0) g/dL Hct (36-46) % MCV (80-100) fL MCH (26-34) PG MCHC (30-36) % RDW (11.6-14.8) % Plt Count (150-400) X10^3/uL Neut % (Auto) (50-75) % Lymph % (Auto) (25-40) % Gillespie % (Auto) (3-14) % Eos % (Auto) (2-4) % Baso % (Auto) (0-2) % Neut # (Auto) (8164-8724) /uL Lymph # (Auto) (2328-6157) /uL Gillespie # (Auto) (0-900) /uL Eos # (Auto) (0-450) /uL Baso # (Auto) (0-100) /uL Sodium (137-145) mmol/L Potassium (3.4-5.1) mmol/L Chloride (98-107) mmol/L Carbon Dioxide (22-32) mmol/L BUN (7-17) mg/dL Creatinine (0.52-1.04) mg/dL Estimated GFR (>60) mL/min BUN/Creatinine Ratio (6-22) Glucose (70-100) mg/dL Calcium (8.4-10.2) mg/dL Total Bilirubin (0.2-1.3) mg/dL AST (14-36) IU/L ALT (<35) IU/L Alkaline Phosphatase (38-126) U/L Total Protein (6.3-8.2) g/dL Albumin (3.5-5.0) g/dL Globulin (1.7-4.1) g/dL Albumin/Globulin Ratio (1.0-2.8) Lipase (23-300) U/L Ur Bilirubin Confirm Negative (Negative) Urine RBC (0-5/HPF) Urine WBC (0-5/HPF) Ur Squamous Epith Cells (0-5/HPF) Ur Transition Epith Cell (0-5/HPF) Urine Bacteria (None) Urine Mucus (Negative) Ur Culture Indicated? Point of care testing: Point of Care Testing Test Results Negative Urine Dip Bedside Urine Glucose Negative Bedside Urine Bilirubin + 1 Bedside Urine Ketone - Negative Urine Specific Hamilton 1.025 Bedside Urine Occult Blood +++ Bedside Urine pH 6.0 Bedside Urine Protein + 30 Bedside Urine Urobilinogen +/- 1mg Bedside Urine Nitrite - Negative Bedside Urine Leukocytes + [address] scan - abdomen/pelvis: Radiologist's Impression: PROCEDURE:? CT ABDOMEN PELVIS W CON ? INDICATIONS:? post op nausea ? TECHNIQUE:? After the administration of IV contrast, axial sections were acquired from the lung bases to the pubic symphysis.? Coronal and sagittal reformats were performed.? For radiation dose reduction, the following was used:? automated exposure control, adjustment of mA and/or kV according to patient size. ? COMPARISON:? None. ? FINDINGS:? Image quality:? Excellent.? ? Lung bases:? There is atelectasis in the lung bases.? ? Heart:? Normal in size. ? ? ABDOMEN: Liver:? There is mild hypoattenuation of the liver along the gallbladder fossa likely representing reactive changes. Gallbladder:? The gallbladder is surgically absent.? Within the gallbladder fossa, there is a thick walled fluid collection measuring up to 4.8 x 3.7 cm in transverse dimension by 3.5 cm in craniocaudal dimension with internal foci of gas.? There is adjacent fat stranding extending into the subhepatic region. Biliary ducts:? Unremarkable.? ? Pancreas:? Unremarkable.? ? Spleen:? Unremarkable.? ? Adrenal Glands:? Unremarkable.? ? Kidneys and Ureters:? Unremarkable.? ? ? Stomach and Bowel:? There is mild wall thickening in the region of the gastric antrum adjacent to the area of peritoneal inflammation likely representing reactive changes.? Remainder of the small and large bowel demonstrate normal caliber and wall thickness. Peritoneum:? There are a few small foci of residual free air consistent with sequelae of recent surgery.? There is fat stranding of the mesenteric fat and omentum in the right upper quadrant suggestive of a peritonitis. ? Ventral Wall: ? There are postsurgical changes within the ventral abdominal wall with surgical macarena along an incision site as well as subcutaneous fat stranding , gas, and fluid.? No hernia.? Abdominal Nodes:? No retroperitoneal or mesenteric adenopathy by size criteria.? Vessels:? Aorta and inferior vena cava are normal in size.? ? PELVIS: Pelvic Organs:? Unremarkable.? ? Bladder:? Unremarkable.? ? Pelvic Nodes: No enlarged lymph nodes.? Miscellaneous: No inguinal hernias are seen. ? ? ? Bones:? Unremarkable.? IMPRESSION:? ? 1. Thick-walled loculated collection in the gallbladder fossa containing fluid and gas with adjacent inflammatory fat stranding.? The findings likely represent an abscess or biloma. ? 2. Postsurgical changes in the right upper quadrant and abdominal wall with fat stranding which may reflect sequelae of recent surgery but associated infection cannot be excluded. ? ? Dictated by: Melvin Arcos M.D. on 07/29/2021 at 13:57 ? ? MDM Narrative Medical decision making narrative: The patient overall appears well her abdomen is non tender. She is afebrile. Blood work does not show any elevation in bilirubin or leukocytosis. She does have mild elevation of liver enzymes and alk phos. CT does show possible abscess. 1550, Dr. Rodriguez updated patient's symptoms and test results she is review of herself. At this time during surgery there are he most basis clots that have been placed in the right upper quadrant. It is unlikely abscess or surgical complication at this time he does recommend magnesium citrate for constipation seen on CT. Patient has not yet had a bowel movement she is given a bottle magnesium citrate from the emergency department. She says that she has not started taking stool softeners which I strongly encouraged her to do. She denies any painful or frequent urination will hold off antibiotics for UTI at this time. Discharge Plan Departure Patient Disposition: Home Clinical Impression: Constipation Instructions: DI for Urinary Tract Infection (UTI), DI for Constipation Activity Restrictions/Additional Instructions: *You have been diagnosed with constipation *What to do: At this time there is no complication from her surgery. Although it is found that you have constipation. Your urine is being cultured if needed in 2-3 days we will call you and start you on antibiotics. However at this time you are not having symptoms *Continue to take medications as directed Mag citrate 1 bottle for constipation take at home, continue bowel regimen as previously recommended *Follow up with your primary care provider in 2-3 days *Return to ER if you should have increasing pain, fever, persistent vomiting or any new, worsening or concerning symptoms Prescriptions: No Action (DME) Test Strips - Freestyle See Rx Instructions .Route .MEDSUPPLY Qty: 100 2RF Rx Instructions: As directed (DME) lancets [BD Ultra Fine Lancets] 33 gauge misc See Dose Instructions .ROUTE .MEDSUPPLY Qty: 250 6RF Dose Instruction: As directed Rx Instructions: Use to test blood sugar 1 to 2 times daily hydrochlorothiazide 25 mg tablet 25 mg PO DAILY Qty: 30 1RF ferrous sulfate [Iron (ferrous sulfate)] 325 mg (65 mg iron) tablet 325 mg PO QDAY Qty: 90 2RF levothyroxine 88 mcg tablet 88 mcg PO DAILY Qty: 90 3RF sertraline 100 mg tablet 200 mg PO DAILY Qty: 60 5RF buspirone 10 mg tablet 10 mg PO BID 0RF ibuprofen 200 mg tablet 400 mg PO Q6H Qty: 60 0RF docusate sodium [Colace] 100 mg capsule 100 mg PO BID Qty: 30 0RF oxycodone 5 mg tablet See Rx Instructions .ROUTE .COMPLEX PRN (Reason: pain) Qty: 30 0RF Rx Instructions: 1-2 tabs every 6 hrs as needed for pain acetaminophen [Tylenol] 325 mg capsule 650 mg PO QID PRN (Reason: pain) Qty: 60 0RF oxycodone 5 mg tablet See Rx Instructions .ROUTE .COMPLEX PRN (Reason: pain) Qty: 30 0RF Rx Instructions: 1-2 tabs every 6 hrs as needed for pain acetaminophen [Tylenol] 325 mg capsule 650 mg PO QID PRN (Reason: pain) Qty: 60 0RF (DME) Resmed Airsense 10 CPAP Qty: 1 0RF Dose Instruction: As directed Label Comments: Pressure: 7-14 cmH2O DME: [employer] Rx Instructions: As directed Referrals: Jony Mccloud MD [Physician] - Shyla Perez DO [Primary Care Provider] -
--- NOTE | 2021-07-29 14:09 | DI.CT.S_ITS ---
PROCEDURE: CT ABDOMEN PELVIS W CON INDICATIONS: post op nausea TECHNIQUE: After the administration of IV contrast, axial sections were acquired from the lung bases to the pubic symphysis. Coronal and sagittal reformats were performed. For radiation dose reduction, the following was used: automated exposure control, adjustment of mA and/or kV according to patient size. COMPARISON: None. FINDINGS: Image quality: Excellent. Lung bases: There is atelectasis in the lung bases. Heart: Normal in size. ABDOMEN: Liver: There is mild hypoattenuation of the liver along the gallbladder fossa likely representing reactive changes. Gallbladder: The gallbladder is surgically absent. Within the gallbladder fossa, there is a thick walled fluid collection measuring up to 4.8 x 3.7 cm in transverse dimension by 3.5 cm in craniocaudal dimension with internal foci of gas. There is adjacent fat stranding extending into the subhepatic region. Biliary ducts: Unremarkable. Pancreas: Unremarkable. Spleen: Unremarkable. Adrenal Glands: Unremarkable. Kidneys and Ureters: Unremarkable. Stomach and Bowel: There is mild wall thickening in the region of the gastric antrum adjacent to the area of peritoneal inflammation likely representing reactive changes. Remainder of the small and large bowel demonstrate normal caliber and wall thickness. Peritoneum: There are a few small foci of residual free air consistent with sequelae of recent surgery. There is fat stranding of the mesenteric fat and omentum in the right upper quadrant suggestive of a peritonitis. Ventral Wall: There are postsurgical changes within the ventral abdominal wall with surgical macarena along an incision site as well as subcutaneous fat stranding , gas, and fluid. No hernia. Abdominal Nodes: No retroperitoneal or mesenteric adenopathy by size criteria. Vessels: Aorta and inferior vena cava are normal in size. PELVIS: Pelvic Organs: Unremarkable. Bladder: Unremarkable. Pelvic Nodes: No enlarged lymph nodes. Miscellaneous: No inguinal hernias are seen. Bones: Unremarkable. IMPRESSION: 1. Thick-walled loculated collection in the gallbladder fossa containing fluid and gas with adjacent inflammatory fat stranding. The findings likely represent an abscess or biloma. 2. Postsurgical changes in the right upper quadrant and abdominal wall with fat stranding which may reflect sequelae of recent surgery but associated infection cannot be excluded. Dictated by: Melvin Arcos M.D. on 07/29/2021 at 13:57 Approved by: Melvin Arcos M.D. on 07/29/2021 at 14:05
[2021-07-29 14:56] LABS: Bacteria Urine Moderate (10-30); Culture Indicated Urine Specimen Cultured; Ictotest Urine Negative (Negative); Mucus Urine 1+ (Negative); RBC Urine >100/HPF (0-5/HPF); Squamous Epithelial Cell Urine 1-5 /HPF (0-5/HPF); Transitional Epi Cells Urine 1-5/HPF (0-5/HPF); WBC Urine 5-10/HPF (0-5/HPF)
[2021-07-29] MEDS: MAGNESIUM CITRATE 300 ML SOLUTION PO (16:22)
== END 2021-07-29 16:27 | disposition home or self-care (01) ==
PROVIDERS: Emergency Provider Emergency Medicine; PCP Family Medicine
DX: K59.00 Constipation, unspecified (principal); R11.0 Nausea
CPT/HCPCS: 36415; 74177; 80053; 81003; 81015; 81025; 83690; 85025; 87086; 99284; Q9967

== ENCOUNTER → 2021-08-17 10:17 | Outpatient (CLI) | payer OTHER, MEDICAID, SELFPAY ==
[2021-07-25 20:36] VITALS: BMI 40.3
[2021-08-17 12:39] LABS: Add Manual Diff / Slide Review NO; Basophils Absolute Auto 0 /uL (0-100); Basophils Percent Auto 0.5 % (0-2); Eosinophils Absolute Auto 100 /uL (0-450); Hematocrit 38.1 % (36-46); Hemoglobin 12.3 g/dL (12.0-16.0); Lymphocytes Absolute Auto 1500 /uL (1100-4500); Lymphocytes Percent Auto 24.5 % (25-40); Mean Corpuscular HGB Conc 32.2 % (30-36); Mean Corpuscular Hemoglobin 23.6 PG (26-34); Mean Corpuscular Volume 73.3 fL (80-100); Monocytes Absolute Auto 400 /uL (0-900); Monocytes Percent Auto 5.9 % (3-14); Neutrophils Absolute Auto 4200 /uL (1500-7000); Neutrophils Percent Auto 68.1 % (50-75); Platelet Count 263 X10^3/uL (150-400); Red Cell Distribution Width 16.8 % (11.6-14.8); White Blood Cell Count 6.2 X10^3/uL (4.5-11.0)
[2021-08-17 12:47] LABS: HEMOLYSIS < 15 (0-50); Iron 48 ug/dL (37-170)
[2021-08-17 12:58] LABS: Percent Iron Saturation 12 % (15-50); Total Iron Binding Capacity 409 ug/dL (265-497); Transferrin 315 mg/dL (206-381)
[2021-08-17 13:22] LABS: Ferritin 34 ng/mL (6-137)
== END ==
PROVIDERS: PCP Family Medicine; Referring Provider Family Medicine; Visit Provider Family Medicine
DX: D50.8 Other iron deficiency anemias (principal)
CPT/HCPCS: 36415; 82728; 83540; 83550; 85025

== ENCOUNTER → 2021-12-01 14:53 | Outpatient (CLI) | payer OTHER, MEDICAID, SELFPAY ==
[2021-07-25 20:36] VITALS: BMI 40.3
[2021-12-01 15:31] LABS: Add Manual Diff / Slide Review NO; Basophils Absolute Auto 100 /uL (0-100); Basophils Percent Auto 0.9 % (0-2); Eosinophils Absolute Auto 100 /uL (0-450); Hemoglobin 11.9 g/dL (12.0-16.0); Lymphocytes Absolute Auto 1700 /uL (1100-4500); Lymphocytes Percent Auto 26.8 % (25-40); Mean Corpuscular HGB Conc 33.1 % (30-36); Mean Corpuscular Hemoglobin 24.2 PG (26-34); Mean Corpuscular Volume 73.1 fL (80-100); Monocytes Absolute Auto 400 /uL (0-900); Monocytes Percent Auto 6.3 % (3-14); Neutrophils Absolute Auto 4000 /uL (1500-7000); Platelet Count 253 X10^3/uL (150-400); Red Blood Cell Count 4.92 X10^6/uL (4.0-5.2); Red Cell Distribution Width 16.1 % (11.6-14.8); White Blood Cell Count 6.2 X10^3/uL (4.5-11.0)
[2021-12-01 15:41] LABS: Hemoglobin A1C% w Est Avg Glu 5.4 % (4.0-6.0)
[2021-12-01 16:37] LABS: Alanine Aminotransferase 31 IU/L (<35); Albumin 4.3 g/dL (3.5-5.0); Albumin Globulin Ratio 1.4 (1.0-2.8); Alkaline Phosphatase 88 U/L (38-126); Aspartate Aminotransferase 39 IU/L (14-36); BUN Creatinine Ratio 12.5 (6-22); Bilirubin Total 0.5 mg/dL (0.2-1.3); Blood Urea Nitrogen 8 mg/dL (7-17); Calcium 9.1 mg/dL (8.4-10.2); Carbon Dioxide 31 mmol/L (22-32); Chloride 100 mmol/L (98-107); Estimated Glomerular Filt Rate > 60.0 mL/min (>60); Globulin 3.1 g/dL (1.7-4.1); Glucose 92 mg/dL (70-100); HEMOLYSIS 33 (0-50); Potassium 4.3 mmol/L (3.4-5.1); Sodium 138 mmol/L (137-145); Total Protein 7.4 g/dL (6.3-8.2)
== END ==
PROVIDERS: PCP Family Medicine; Referring Provider Family Medicine; Visit Provider Family Medicine
DX: D50.9 Iron deficiency anemia, unspecified (principal); E16.2 Hypoglycemia, unspecified; E78.5 Hyperlipidemia, unspecified; I10 Essential (primary) hypertension
CPT/HCPCS: 36415; 80053; 83036; 85025

== ENCOUNTER → 2023-01-18 12:44 | Outpatient (CLI) | payer OTHER, MEDICAID, SELFPAY ==
[2021-07-25 20:36] VITALS: BMI 40.3
--- NOTE | 2023-01-18 12:46 | DI.MG.S_ITS ---
BILATERAL DIGITAL SCREENING MAMMOGRAM 3D/2D WITH CAD: 01/18/2023 CLINICAL: Routine screening. Comparison is made to exams dated: 07/09/2020 mammogram - [facility] and 01/14/2014 mammogram - outside location. There are scattered areas of fibroglandular density in both breasts (category b / 25%-50% glandular tissue). Current study was also evaluated with a Computer Aided Detection (CAD) system. There is a stable benign global asymmetry in the left breast. No significant masses, calcifications, or other findings are seen in either breast. There has been no significant interval change. IMPRESSION: BENIGN There is no mammographic evidence of malignancy. A 1 year screening mammogram is recommended. Based on the Tyrer Cuzick model (a risk assessment model) the patient's lifetime risk is 7.3% and her 10 year risk is 1.2%. According to the ACR, ACS, and NCCN guidelines, an annual breast MRI exam along with mammogram is recommended if the patient's lifetime risk is 20% or greater. This exam was interpreted at Station ID: [id number]. NOTE: For mammograms, a report in lay terms will be sent to the patient. Approximately 15% of breast malignancies will not be visualized mammographically. In the management of a palpable breast mass, a negative mammogram must not discourage biopsy of a clinically suspicious lesion. Electronically Signed By: Umang xiao/hakan:01/18/2023 17:36:20 letter sent: Normal Exam ACR BI-RADS Category 2: Benign Finding(s) 3342F
== END ==
PROVIDERS: PCP Family Medicine; Referring Provider Family Medicine; Visit Provider Family Medicine
DX: Z12.31 Encounter for screening mammogram for malignant neoplasm of breast (principal)
CPT/HCPCS: 77063; 77067

== ENCOUNTER 2024-02-14 07:37 | Day surgery (SDC) | payer OTHER, MEDICAID, SELFPAY ==
[2021-07-25 20:36] VITALS: BMI 40.3
--- NOTE | 2024-02-14 | PATH_ITS ---
[facility] Accession Number: [id number] No. of containers..01 Tissue . 01 Material submitted: . colon - ASCENDING COLON POLYP . 01 Diagnosis: ASCENDING COLON POLYP: Tubular adenoma. MRV 02/19/2024 1449 Local . 01 Electronically signed: . Christoph Baker MD, PhD, Pathologist NPI- [id number] . 01 Gross description: . Received in formalin with two patient identifiers and ascending colon polyp, is a single zepeda soft tissue fragment, 0.3 cm in greatest dimension. Submitted in A1. ([id number]) /MRV 02/17/2024 1850 Local . 01 Pathologist provided ICD-10: D12.2 . 01 CPT . 778815 Specimen Comment: A courtesy copy of this report has been sent to [phone] Performed at: [address] [id number] MD Melvin Mercado MD Phone: [phone]
[2024-02-14 08:18] VITALS: BP 138/88; PULSE 94; RESP 16; TEMP 36.2; O2SAT 99
[2024-02-14] MEDS: LACTATED RINGERS 1,000 ML 42 ML IV (08:20)
--- NOTE | 2024-02-14 08:20 | PM.HP.1 ---
History of Present Illness History of Present Illness Date Patient Seen: 02/14/24 Time Patient Seen: 08:20 Chief complaint: Screening Colonoscopy Narrative: First colonoscopy for screening. Brother had colon polyps. No GI symptoms currently. [facility] Medical History DAVID on CPAP Irregular heartbeat Anemia, unspecified Diarrhea Abdominal pain Dyslexia Hyperlipidemia Pre-diabetes Ulnar neuropathy Burton's palsy Essential hypertension 3 Hearing deficit PTSD (post-traumatic stress disorder) Sleep apnea (~2015) Anxiety Depression History of frequent headaches Fracture (~2016) Chronic back pain Ankle pain (~2016) Chickenpox Anemia IBS (irritable bowel syndrome) (~2012) Hypothyroidism (~2013) HSV (herpes simplex virus) infection (~1989) Abnormal Pap smear of cervix (~2013) Surgical History History of section Anesthesia History of ankle surgery (~2016) Status post tubal ligation (~2003) History of third molar tooth extraction (~2000) Family History Grandfather Cancer Grandmother Heart disease High cholesterol Stroke Mother Age: 71 Atrial fibrillation Hypertension Obesity Diabetes mellitus Brother No problems noted. Father No problems noted. Social History household members: other Smoking Status: Never smoker alcohol intake: never Meds Home Medications and Allergies Home Medications Medication Instructions Recorded Confirmed Type ResMed AirSense 11 03/26/22 12/26/23 History sertraline 100 mg tablet 150 mg PO DAILY 02/21/23 02/14/24 History blood-glucose meter #1 ea 03/01/23 12/26/23 Rx ferrous gluconate 324 mg (38 mg 324 mg PO DAILY #90 tabs 03/01/23 02/14/24 Rx iron) tablet lancets 33 gauge (BD Ultra Fine #100 ea 03/01/23 12/26/23 Rx Lancets) lancets 33 gauge (BD Ultra Fine #250 ea 03/01/23 12/26/23 Rx Lancets) blood sugar diagnostic (Blood #100 ea 03/05/23 12/26/23 Rx Glucose Test strips) bupropion HCl 100 mg tablet 100 mg PO DAILY 05/16/23 02/14/24 History buspirone 15 mg tablet 15 mg PO TID 05/16/23 02/14/24 History hydrochlorothiazide 25 mg tablet 12.5 mg (1/2 x 25 mg) PO DAILY #45 12/26/23 02/14/24 Rx tabs levothyroxine 88 mcg tablet 88 mcg PO DAILY #90 tabs 12/26/23 02/14/24 Rx rosuvastatin 5 mg tablet 5 mg PO DAILY #90 tabs 12/26/23 02/14/24 Rx loratadine 10 mg tablet (Claritin) 10 mg PO DAILY PRN allergic 01/31/24 02/14/24 Rx symptoms #90 tabs Allergies Allergy/AdvReac Type Severity Reaction Status Date / Time No Known Drug Allergies Allergy Verified 12/26/23 13:14 Review of Systems Review of Systems ROS: Yes All systems reviewed with the patient and are negative except as otherwise documented Exam Vital Signs (past 8 hours): - 02/14/24 08:18 Temperature 97.2 F L Pulse Rate 94 H Respiratory Rate 16 Blood Pressure 138/88 Pulse Oximetry 99 Oxygen Delivery Method Room Air Oxygen Delivery Method Room Air Const General: cooperative and comfortable Nutritional Appearance: obese HENMT Head: normocephalic and atraumatic Teeth and gingiva: abnormal tooth or associated gingiva Eyes General: appearance normal, both eyes and all related structures Sclera: sclerae normal Neck Neck: trachea midline Resp Effort & Inspection: normal respiratory effort and able to speak in complete sentences Cardio Rate: regular rate Rhythm: abnormal rhythm GI Palpation: soft and No tender Skin General: turgor normal Neuro General: patient alert, patient awake and patient oriented x3 Speech: speech normal Psych Mental Status: mental status grossly normal Judgment: judgment good Assessment & Plan Assessment & Plan narrative: colon cancer screening using colonoscopy with anesthesia Time Spent With Patient Time with patient: less than 30 minutes
--- NOTE | 2024-02-14 09:41 | PM.OP.COLON ---
Operative Date/Time/Diagnoses Date of procedure: 02/14/24 Time of procedure: 09:41 Pre-op diagnosis: Colon cancer screening Post-op diagnosis: same Procedure & Clinicians Study performed: Colonoscopy with anesthesia and cold forceps polypectomy Same procedure as scheduled: Yes Indications: Colon cancer screening Surgeon: Mary Rodriguez Procedure Notes Procedure in detail: Preop diagnosis: colon cancer screening Postop diagnosis: Same Operative procedure: Colonoscopy with anesthesia and cold forceps polypectomy Surgeon: Mary Rodriguez MD Findings: Single sessile polyp 3 mm in size taken with the cold forceps. Located in the proximal ascending colon Procedure: Patient placed in a lateral position. Rectal exam performed showing normal tone no masses. Colonoscope inserted into the rectum and advanced to ileocecal valve with minimal difficulty. Insufflation extraction of the scope and the above findings. Retroflex was included in the rectum. And a cold forceps polypectomy was carried out in the ascending colon as described Impression: Single colon polyp, 3 mm in size in the ascending colon. Plan repeat colonoscopy in 5 years Findings: polyp(s) Specimen(s): other (Ascending colon 3 mm polyp) Complications: none Post-procedure Recommendations: Colonoscopy in 5 years Follow up: as needed Disposition: PACU
[2024-02-14 09:44] VITALS: BP 101/79; PULSE 79; RESP 14; TEMP 36.7; O2SAT 92
[2024-02-14 09:50] VITALS: BP 114/62; PULSE 76; RESP 15; O2SAT 96
[2024-02-14 09:55] VITALS: BP 109/71; PULSE 76; RESP 15; O2SAT 96
[2024-02-14 10:02] VITALS: BP 104/70; PULSE 78; RESP 16; TEMP 36.6; O2SAT 97
== END 2024-02-14 10:16 | disposition home or self-care (01) ==
PROVIDERS: PCP Family Medicine; Referring Provider Surgery; Visit Provider Surgery
PROC: 0DJD8ZZ Inspection of Lower Intestinal Tract, Via Natural or Artificial Opening Endoscopic (ICD-10-PCS; CPT 45378; principal; 2024-02-14 08:45)
DX: Z12.11 Encounter for screening for malignant neoplasm of colon (principal); D12.2 Benign neoplasm of ascending colon
CPT/HCPCS: 45380; 82962; J2704

== ENCOUNTER → 2024-05-25 15:58 | Outpatient (CLI) | payer OTHER, MEDICAID, SELFPAY ==
[2021-07-25 20:36] VITALS: BMI 40.3
--- NOTE | 2024-05-25 15:59 | DI.MG.S_ITS ---
BILATERAL DIGITAL SCREENING MAMMOGRAM 3D/2D WITH CAD: 05/25/2024 CLINICAL: Routine screening. Comparison is made to exams dated: 01/18/2023 mammogram, 07/09/2020 mammogram - [facility], and 01/14/2014 mammogram - outside location. The breasts are heterogeneously dense, which may obscure small masses (category c / 51-75% glandular tissue). Current study was also evaluated with a Computer Aided Detection (CAD) system. No significant masses, calcifications, or other findings are seen in either breast. There has been no significant interval change. IMPRESSION: NEGATIVE There is no mammographic evidence of malignancy. A 1 year screening mammogram is recommended. Based on the Tyrer Cuzick model (a risk assessment model) the patient's lifetime risk is 10.0% and her 10 year risk is 1.9%. According to the ACR, ACS, and NCCN guidelines, an annual breast MRI exam along with mammogram is recommended if the patient's lifetime risk is 20% or greater. This exam was interpreted at Station ID: [id number]. NOTE: For mammograms, a report in lay terms will be sent to the patient. Approximately 15% of breast malignancies will not be visualized mammographically. In the management of a palpable breast mass, a negative mammogram must not discourage biopsy of a clinically suspicious lesion. Electronically Signed By: Bharathi foss/hakan:05/26/2024 09:16:15 letter sent: Normal Exam ACR BI-RADS Category 1: Negative
== END ==
PROVIDERS: PCP Family Medicine; Referring Provider Family Medicine; Visit Provider Family Medicine
DX: Z12.31 Encounter for screening mammogram for malignant neoplasm of breast (principal); R92.333 Mammographic heterogeneous density, bilateral breasts
CPT/HCPCS: 77063; 77067

== ENCOUNTER → 2025-03-05 16:14 | Outpatient (CLI) | payer OTHER, MEDICAID, SELFPAY ==
[2021-07-25 20:36] VITALS: BMI 40.3
--- NOTE | 2025-03-05 16:16 | DI.RAD.S_ITS ---
PROCEDURE: XR ANKLE LT MIN 3V INDICATIONS: left ankle pain TECHNIQUE: 3 views of the ankle were acquired. COMPARISON: None. FINDINGS: Bones: Hardware within the distal fibula and medial malleolus without evidence of complication. No definite acute osseous abnormalities. Ankle mortise is normally aligned. No suspicious bony lesions. Retrocalcaneal enthesopathy. Soft tissues: No tibiotalar joint effusion. Achilles tendon appears normal. IMPRESSION: No evidence of acute osseous abnormality or hardware complication. Dictated by: Jean Paul Hernandez M.D. on 03/07/2025 at 19:10 Approved by: Jean Paul Hernandez M.D. on 03/07/2025 at 19:11
== END ==
PROVIDERS: PCP Family Medicine; Referring Provider Family Medicine; Visit Provider Family Medicine
DX: S82.892S Other fracture of left lower leg, sequela (principal); M25.572 Pain in left ankle and joints of left foot
CPT/HCPCS: 73610

== ENCOUNTER → 2025-04-07 13:46 | Outpatient (CLI) | payer OTHER, SELFPAY ==
[2021-07-25 20:36] VITALS: BMI 40.3
--- NOTE | 2025-04-07 16:52 | DIET.OUTPTC ---
Dietary Outpatient Consult Consult Date:04/07/25 Assessment:?45 y F referred to dietitian for E03.9 Hypothyroidism, unspecified S82.892S Other fracture of left lower leg, sequela D50.8 Other iron deficiency anemias D50.9 Iron deficiency anemia, unspecified E78.2 Mixed hyperlipidemia I10 Essential (primary) hypertension Pt reports wanting to learn more about how to prepare simple, healthy meals. Reports often having lower appetite, which discourages her from cooking. Hx of weight loss in mid- by doing a program with energy drink and supplements, small freq meals and lots of walking. Difficulty with stopping regular soda intake, has historically attempted, which left pt hiding soda intake instead of limiting. Family hx of DM. GI symptoms: BM 2-3x/wk described at type 4-5. Gets sick when eating artificial sweeteners, OK with splenda and stevia. Odorous gas when eating green peppers. Diet Recall: -noon: instant carnation brekafast protein shake OR cereal (cream of wheat/oats package, fruit marilia) OR leftovers (e.g. mac and cheese) sometimes snack of chips or mac and cheese boxed or frozen or buttered noodles w/ imperial butter and garlic salt; tries to use ww breads and pastas D, 8pm-frozen meals (like cheesy chk rice 1g Na, 30% SFA) OR hot dogs/corn dogs Daily fiber advance supplement 6 g fiber 200 mcg chromium (doesn't take with meds) Fluids: 2-3 1.25 L regular soda, 1 20 oz bottle of cirkul water, sometimes uses soda machine to make own sodas at home using sugar sweetened flavor water packets 04/01/2516:21 Height 5 ft 4 in Weight 229 lb 2 oz BMI 39.3 Activity:1-2 walks with dog daily for 15-20 minutes each, if weather is nice Pertinent Labs:A1c WNL, LDL 113 Nutrition Diagnosis:? Excessive energy intake r/t sugar sweetened beverages and processed food intake aeb diet recall with 2-3 1.25 L regular soda each around 150 g added sugar and frozen and boxed meals Inadequate fiber intake r/t high intake of processed foods, struggling to use produce before going bad aeb diet recall <15 g fiber daily Excessive sodium intake r/t high intake of processed foods and food and nutrition related knowledge deficit aeb no previous label reading educ, intake of packaged meals >600mg Interventions:? Discussed and provided appropriate resources on the following: -Balanced meals and snacks in line with myplate, Mediterranean style of eating -Portion sizing -Education on label reading -Recommended servings for carbohydrates at meals and snacks -Fiber, amounts, types -Physical activity -Lab values and correlation with nutrition -Brainstormed appropriate meal plan based on food preferences -Hydration and using health belief model counseling and [place] for reducing soda intake and setting SMART goals Goals: -Use lemon/orange/[place] of [place] juice with stevia/splenda packet to flavor water in the at home soda machine -1 more cirkul 20 oz bottle water -Sip of water before sip of soda -Before stepping into grocery store/convenience store taking moment to remind self of health goals and reason for goals Other future goals discussed: -doing over night oats with plant based milk and oats from container over sugary packets with fruit or stevia -Frozen meals <600 mg sodium -Add addition of frozen vegs to frozen meal to increase fiber intake EER:? 25-28 g fiber, <25 g added sugar Monitoring/Evaluations:? F/u in 2 wks Electronically Signed by: Akanksha Singleton Clinical Dietitian [address] [address]
== END ==
LOC: DIET 13:46
PROVIDERS: PCP Family Medicine; Referring Provider Family Medicine
DX: E03.9 Hypothyroidism, unspecified (principal); D50.8 Other iron deficiency anemias; E78.2 Mixed hyperlipidemia; I10 Essential (primary) hypertension; S82.892S Other fracture of left lower leg, sequela; Z71.3 Dietary counseling and surveillance; Z83.3 Family history of diabetes mellitus
CPT/HCPCS: 97802

== ENCOUNTER → 2025-04-30 14:07 | Outpatient (CLI) | payer OTHER, SELFPAY ==
[2021-07-25 20:36] VITALS: BMI 40.3
--- NOTE | 2025-05-04 10:17 | DIET.OUTPTC ---
Dietary Outpatient Consult Consult Date:04/30/25 Assessment:?45 y F referred to dietitian for E03.9 Hypothyroidism, unspecified S82.892S Other fracture of left lower leg, sequela D50.8 Other iron deficiency anemias D50.9 Iron deficiency anemia, unspecified E78.2 Mixed hyperlipidemia I10 Essential (primary) hypertension Pt got some lemon juice and will try it in water w/ stevia. Increased water intake to 1.5 20 oz water bottle. Still struggling with soda intake, hopeful that lemon juice with stevia in the soda machine will taste good. Did look at other frozen meal options that met the label requirements for sat fats and sodium we discussed last session, but found the options at [facility] were limited. Started doing canned green beans 1-2x/wk. Finished the last bag of corn dogs at home. Has plain frozen chk breast at home now. Family hx of DM. GI symptoms: BM 2-3x/wk described at type 4-5. Gets sick when eating artificial sweeteners, OK with splenda and stevia. Odorous gas when eating green peppers. Diet Recall: -noon: instant carnation breakfast protein shake OR cereal (cream of wheat/oats package, fruit marilia) OR leftovers (e.g. mac and cheese) sometimes snack of chips or mac and cheese boxed or frozen or buttered noodles w/ imperial butter and garlic salt; tries to use ww breads and pastas D, 8pm-frozen meals (like cheesy chk rice 1g Na, 30% SFA) OR hot dogs/corn dogs Daily fiber advance supplement 6 g fiber 200 mcg chromium (doesn't take with meds) Fluids: 2-3 1.25 L regular soda, 1.5 20 oz bottle of cirkul water, sometimes uses soda machine to make own sodas at home using sugar sweetened flavor water packets 04/01/2516:21 Height 5 ft 4 in Weight 229 lb 2 oz BMI 39.3 Activity:1-2 walks with dog daily for 15-20 minutes each, if weather is nice - struggles in heat r/t hot flashes Pertinent Labs:A1c WNL, LDL 113 Nutrition Diagnosis:? Excessive energy intake r/t sugar sweetened beverages and processed food intake aeb diet recall with 2-3 1.25 L regular soda each around 150 g added sugar and frozen and boxed meals Inadequate fiber intake r/t high intake of processed foods, struggling to use produce before going bad aeb diet recall <15 g fiber daily Excessive sodium intake r/t high intake of processed foods and food and nutrition related knowledge deficit aeb no previous label reading educ, intake of packaged meals >600mg Interventions:? Discussed and provided appropriate resources on the following: -Discussed other dinner meal options - cooking chicken breast, microwave rice/potato, and canned or frozen vegs in microwave -[place] counseling for continuing to reduce soda intake -Easy ways to increase fiber intake Goals: -Plan remains to try lemon juice + stevia + carbonation from home soda machine -Sip water first before soda to get 2 20 oz water bottles in -Cooking chicken/rice/veg meal 1x EER:? 25-28 g fiber, <25 g added sugar Monitoring/Evaluations:? F/u in 2 wks Electronically Signed by: Akanksha Singleton Clinical Dietitian [address] [address]
== END ==
PROVIDERS: PCP Family Medicine; Referring Provider Family Medicine
DX: E03.9 Hypothyroidism, unspecified (principal); S82.892S Other fracture of left lower leg, sequela; D50.8 Other iron deficiency anemias; D50.9 Iron deficiency anemia, unspecified; E78.2 Mixed hyperlipidemia; I10 Essential (primary) hypertension; Z71.3 Dietary counseling and surveillance
CPT/HCPCS: 97803

== ENCOUNTER → 2025-05-18 14:08 | Outpatient (CLI) | payer OTHER, SELFPAY ==
[2021-07-25 20:36] VITALS: BMI 40.3
--- NOTE | 2025-05-25 13:24 | DIET.OUTPTC ---
Dietary Outpatient Consult Consult date: 05/18/25 Assessment:?45 y F referred to dietitian for E03.9 Hypothyroidism, unspecified S82.892S Other fracture of left lower leg, sequela D50.8 Other iron deficiency anemias D50.9 Iron deficiency anemia, unspecified E78.2 Mixed hyperlipidemia I10 Essential (primary) hypertension Reports up to average of 2 20 oz bottles water per day, is trying to bring water bottles with her when she is out of house to help reduce occurrences of buying soda from store. Did try the stevia/lemon juice in soda machine as soda alternatives, did not like as not enough flavor. Suggested adding 1/4 c juice to the 20 oz serving to help flavor while still having less CHO than soda. Still needs to go to store to get other dinner options besides the frozen meals, but has been using [employer] steamers (that are lower in sodium, SFA, and higher fiber). 04/01/2516:21 Height 5 ft 4 in Weight 229 lb 2 oz BMI 39.3 Activity:1-2 walks with dog daily for 15-20 minutes each, has been doing walks more consistent with cooler weather Pertinent Labs:A1c WNL, LDL 113 Nutrition Diagnosis:? Excessive energy intake r/t sugar sweetened beverages and processed food intake aeb diet recall with 2-3 1.25 L regular soda each around 150 g added sugar and frozen and boxed meals Inadequate fiber intake r/t high intake of processed foods, struggling to use produce before going bad aeb diet recall <15 g fiber daily Excessive sodium intake r/t high intake of processed foods and food and nutrition related knowledge deficit aeb no previous label reading educ, intake of packaged meals >600mg Interventions:? Discussed and provided appropriate resources on the following: -Discussed other dinner meal options -[place] counseling for continuing to reduce soda intake -Easy ways to increase fiber intake; provided handout and reviewed common foods that pt can easily add more frequently to diet Goals: -1/4 c juice in 20 oz homemade carbonated water for better flavor -extending walks to 30 minutes -continue with previous goal of cooking chk/rice/frozen veg for dinner 1x EER:? 25-28 g fiber, <25 g added sugar Monitoring/Evaluations:? F/u in 1 month Electronically Signed by: Akanksha Singleton Clinical Dietitian [address] [address]
== END ==
LOC: DIET 14:08
PROVIDERS: PCP Family Medicine; Referring Provider Family Medicine
DX: E03.9 Hypothyroidism, unspecified (principal); S82.892S Other fracture of left lower leg, sequela; D50.8 Other iron deficiency anemias; D50.9 Iron deficiency anemia, unspecified; E78.2 Mixed hyperlipidemia; I10 Essential (primary) hypertension; Z71.3 Dietary counseling and surveillance
CPT/HCPCS: 97803

== ENCOUNTER → 2025-06-15 14:09 | Outpatient (CLI) | payer OTHER, SELFPAY ==
[2021-07-25 20:36] VITALS: BMI 40.3
--- NOTE | 2025-06-15 15:35 | DIET.OUTPTC ---
Dietary Outpatient Consult Consult Date:06/15/25 Assessment:?45 y F referred to dietitian for E03.9 Hypothyroidism, unspecified S82.892S Other fracture of left lower leg, sequela D50.8 Other iron deficiency anemias D50.9 Iron deficiency anemia, unspecified E78.2 Mixed hyperlipidemia I10 Essential (primary) hypertension Reports up to average of 2-3 20 oz bottles water per day. Is starting with water in the morning and holding off on soda til afternoon, then matches water intake with soda intake. Started cooking at home 2x/wk with leftovers that last 3-4 meals. Has a caregiver helping now. Mostly chicken based meals (e.g. BBQ chicken, chicken and guamanian cheese). Interested in more ideas. Back to cold sugar based cereals in morning. Trouble walking outside now d/t rain, dog gets too cold, can't walk without the dog. 04/01/2516:21 Height 5 ft 4 in Weight 229 lb 2 oz BMI 39.3 Activity:1-2 walks with dog daily for 15-20 minutes each Pertinent Labs:A1c WNL, LDL 113 Nutrition Diagnosis:? Excessive energy intake r/t sugar sweetened beverages and processed food intake aeb diet recall with 2-3 1.25 L regular soda each around 150 g added sugar and frozen and boxed meals Inadequate fiber intake r/t high intake of processed foods, struggling to use produce before going bad aeb diet recall <15 g fiber daily Excessive sodium intake r/t high intake of processed foods and food and nutrition related knowledge deficit aeb no previous label reading educ, intake of packaged meals >600mg Interventions:? Discussed and provided appropriate resources on the following: -Discussed dinner recipes, options, websites -[place] counseling for continuing to reduce soda intake -Provided handout again on creating a meal with 1 cup starch, 2 cups veggies, and 4 oz protein -Physical activity alternatives besides walking Goals: -When can't walk outside d/t weather do inside 10-15 minute indoor walking video on [employer] -3-4 20 oz water bottles and continue working to not buying soda with methods discussed -Using plate method when creating meals and CHO handout for 1 cup or 45 g CHO serving -Restart making overnight oats for breakfast, portioned EER:? 25-28 g fiber, <25 g added sugar Monitoring/Evaluations:? F/u in 1 month Electronically Signed by: Akanksha Singleton Clinical Dietitian [address] [address]
== END ==
LOC: DIET 14:09
PROVIDERS: PCP Family Medicine; Referring Provider Family Medicine
DX: E03.9 Hypothyroidism, unspecified (principal); S82.892S Other fracture of left lower leg, sequela; D50.8 Other iron deficiency anemias; D50.9 Iron deficiency anemia, unspecified; E78.2 Mixed hyperlipidemia; I10 Essential (primary) hypertension; Z68.39 Body mass index [BMI] 39.0-39.9, adult; Z71.3 Dietary counseling and surveillance
CPT/HCPCS: 97803

== ENCOUNTER → 2025-07-28 12:36 | Outpatient (CLI) | payer OTHER, SELFPAY ==
[2021-07-25 20:36] VITALS: BMI 40.3
--- NOTE | 2025-07-28 13:40 | DIET.OUTPTC ---
Dietary Outpatient Consult Consult Date:07/28/25 Assessment:?45 y F referred to dietitian for E03.9 Hypothyroidism, unspecified S82.892S Other fracture of left lower leg, sequela D50.8 Other iron deficiency anemias D50.9 Iron deficiency anemia, unspecified E78.2 Mixed hyperlipidemia I10 Essential (primary) hypertension Reports up to average of 2 26 oz bottles water per day. Doing 4 12 oz soda daily lately. Recent sale on soda led to purchasing more and having more in house. trying to keep them downstairs to make them more inaccessible. Tried zero sugar enamorado flavored water today and enjoyed it. Having oats or eggs or kodiak protein waffles for breakfast now. Diet recall: B-oats (oats, stevia, cinnamon +flavor of choice (e.g. pumpkin puree, mangos, etc), eggs, or kodiak protein waffles @ noon L- ham @4pm D-healthy choice frozen or homemade meal @8pm 04/01/2516:21 Height 5 ft 4 in Weight 229 lb 2 oz BMI 39.3 Activity:1-2 walks with dog daily for 15-20 minutes each Pertinent Labs:A1c WNL, LDL 113 Nutrition Diagnosis:? Excessive energy intake r/t sugar sweetened beverages and processed food intake aeb diet recall with 2-3 1.25 L regular soda each around 150 g added sugar and frozen and boxed meals Inadequate fiber intake r/t high intake of processed foods, struggling to use produce before going bad aeb diet recall <15 g fiber daily Excessive sodium intake r/t high intake of processed foods and food and nutrition related knowledge deficit aeb no previous label reading educ, intake of packaged meals >600mg Interventions:? Discussed and provided appropriate resources on the following: -Reviewed recipes for oats and discussed protein needs at breakfast -[place] counseling for continuing to reduce soda intake -Frozen and canned veggies and fruit and making best selection -Physical activity alternatives besides walking Goals: -Trying zero sugar water, having it in room and placing it on top of sodas. Talking with caregiver for help with reducing buying soda when shopping. -Indoor walking videos -At least 15 g protein in morning with added soy protein powder to oats and/or wolof yogurt -No salt added canned veggies, fruit in fruit juice, drained EER:? 25-28 g fiber, <25 g added sugar Monitoring/Evaluations:? F/u in 1 month Electronically Signed by: Akanksha Singleton Clinical Dietitian [address] [address]
== END ==
LOC: DIET 12:37
PROVIDERS: PCP Family Medicine; Referring Provider Family Medicine
DX: E03.9 Hypothyroidism, unspecified (principal); S82.892S Other fracture of left lower leg, sequela; D50.9 Iron deficiency anemia, unspecified; D50.8 Other iron deficiency anemias; E78.2 Mixed hyperlipidemia; I10 Essential (primary) hypertension; Z68.39 Body mass index [BMI] 39.0-39.9, adult; Z71.3 Dietary counseling and surveillance
CPT/HCPCS: 97803

== ENCOUNTER → 2025-08-24 13:59 | Outpatient (CLI) | payer OTHER, SELFPAY ==
[2021-07-25 20:36] VITALS: BMI 40.3
--- NOTE | 2025-08-24 14:00 | DI.MG.S_ITS ---
MM screening mammo BI: 08/24/2025. BI-RADS: 1 CLINICAL: 45-year old female for bilateral screening mammogram. Tyrer-Cuzick lifetime risk of 9.0%. No personal or first-degree family history of breast cancer. PRIOR EXAMS 05/25/2024, 01/18/2023. MAMMOGRAPHY TECHNIQUE: 2D and 3D (tomosynthesis) digital mammographic views obtained, with additional images as needed for full coverage. Current study was also evaluated with a Computer Aided Detection (CAD) system. DENSITY C. The breasts are heterogeneously dense, which may obscure small masses. MAMMOGRAPHY FINDINGS Bilateral: No suspicious mass, asymmetry, microcalcification, or other abnormality seen. IMPRESSION: * No evidence of malignancy. RECOMMENDATIONS Bilateral * Annual screening mammography. OVERALL ASSESSMENT CATEGORY BI-RADS-1: Negative. The [employer] recommends annual screening mammography beginning at age 40 for women with average risk of breast cancer. ELECTRONICALLY SIGNED: Veronica Anderson M.D. on 08/25/2025 at 08:28:10 AM PT Interpreting Station ID: [id number]
== END ==
LOC: MAMMO 14:00
PROVIDERS: PCP Family Medicine; Referring Provider Family Medicine; Visit Provider Family Medicine
DX: Z12.31 Encounter for screening mammogram for malignant neoplasm of breast (principal); R92.333 Mammographic heterogeneous density, bilateral breasts
CPT/HCPCS: 77063; 77067